=== PATIENT | female | born 1990 | race Caucasian/White ===

== ENCOUNTER 2021-03-10 14:03 | Emergency (ER) | payer OTHER, SELFPAY ==
--- NOTE | ~2021-03-10 | US_ITS ---
EXAMINATION: US FIRST TRIMESTER CLINICAL INFORMATION: Question ectopic LMP: Unknown Beta-hCG: Unknown COMPARISON: None available. TECHNIQUE: Transabdominal imaging was performed. FINDINGS: UTERUS AND INTRAUTERINE GESTATIONAL SAC: There is no intrauterine gestational sac found. OVARIES: Right: There is mildly complex septated cystic structure 1.5 x 0.9 x 1.5 cm. Left: There is a complex heterogeneous cystic structure in the left ovary 1.3 x 1.2 x 1.1 cm, in the right clinical setting, cannot rule out ectopic. FREE FLUID: There is a free fluid in the pelvis. OTHER FINDINGS: None US/US OB transvaginal IMPRESSION: 1. No intrauterine uterine gestational sac found. 2. Nonspecific Mild complex structure in the left ovary 1.3 cm, in the right clinical setting CANNOT RULE OUT ECTOPIC . Clinical correlation recommended. There is fluid in the pelvis.
[2021-03-10 14:14] VITALS: BP 107/63; PULSE 73; RESP 18; TEMP 36.7; O2SAT 100; BMI 30.2
--- NOTE | 2021-03-10 16:30 | ED_ITS ---
HPI - General Chief complaint: Vaginal Bleeding Stated complaint: , abd pain & vaginal pressure Time Seen by Provider: 03/10/21 16:27 History of Present Illness HPI Narrative: Patient is a 30-year-old female presented with having vaginal bleeding. Patient been bleeding for the last 3 weeks. Unsure when her last menstruation was. She has been 3 other times. With 3 live births. All vaginal. Patient went to urgent care yesterday for a possible yeast infec tion. Had a test done there. It was grossly positive. Never had an ectopic never had any gonorrhea chlamydia. Patient is on control. Patient claims compliance. No fever no chills no chest pain or shortness of breath no diaphoresis. No coughing no congestion or upper respiratory symptoms. Patient already received her coronavirus vaccine. Related Data Allergies Allergy/AdvReac Type Severity Reaction Status Date / Time No Known Allergies Allergy Verified 03/10/21 16:27 Review of Systems Review of Systems: No coughing or congestion or upper respiratory symptoms Positive lower abdominal pain Yes all other systems are reviewed and are negative [facility] Past Medical History Attestation statement: The following information was validated with the patient. Social History Social History Advance Directives: No Advance Directives Information Provided: No Patient : Yes Physical Exam Vital Signs: Vital Signs: Last Vital Signs Temp 97.8 F 03/10/21 20:27 Pulse 86 03/10/21 20:27 Resp 16 03/10/21 20:27 BP 121/65 03/10/21 20:27 Pulse Ox 97 03/10/21 20:27 Body Mass Index 30.2 Appearance: Alert. Oriented X3. No acute distress. Eyes: Pupils equal, round and reactive to light. ENT: Pharynx normal. Neck: Normal inspection. Neck supple. No lymph nodes noted. No crepitus CVS: Normal heart rate and rhythm. Pulses normal. Normal S1 and S2 Respiratory: No respiratory distress. Breath sounds normal. No Wheezing. No rales Abdomen: Soft and nontender. No rigidity. No distention. good BS x4 Skin: Skin warm and dry. Normal skin color. Normal skin turgor. Extremities: No lower extremity edema. Neurovascular intact to all extremities. No Lacerations. No Rash Neuro: Oriented X 3. No motor deficit. No sensory deficit. Moving all extermities. No slurred speech MDM - OB/Uterine Contractions MDM Narrative Medical decision making narrative: Patient's hemoglobin is 13. Quant was approximately 2800. At this level expected to see an IUP. Patient's ultrasound showed evidence for possible ectopic . Patient's blood type is A positive. Case was discussed with OBGYN came down evaluated patient. After long discussion with patient by OBGYN. Patient will be started on methotrexate. Close follow-up with OBGYN on Friday. Blood to be drawn as per OB on Friday morning. Patient's vital signs remained stable. Currently in stable condition. Will discharge after methotrexate Medical Records Attestation: I reviewed the patient's medical records. Lab Data Attestation: I reviewed the patient's lab results. Result diagrams: 03/10/21 16:45 03/10/21 16:45 Labs: Lab Results 03/10/21 03/10/21 03/10/21 Range/Units 16:45 16:45 16:45 WBC 12.8 H (4.8-10.8) X10*3/uL RBC 4.11 L (4.20-5.50) X10*6/uL Hgb 13.1 (12.0-16.0) g/dl Hct 37.9 (37.0-47.0) % MCV 92.2 (80.0-98.0) fL MCH 31.9 (27.0-33.0) pg MCHC 34.6 (31.0-35.0) g/dl RDW 12.3 (11.0-16.0) % Plt Count 298 (160-400) X10*3/uL MPV 9.6 (9.4-12.3) fL Immature Gran % (Auto) 0.4 (0.0-0.4) % Neut % (Auto) 79.3 H (45-73) % Lymph % (Auto) 15.9 L (20-40) % Gonzales % (Auto) 4.1 (2-11) % Eos % (Auto) 0.1 (0-4) % Baso % (Auto) 0.2 (0-2) % Lymph # (Auto) 2.0 (1.2-4.9) X10*3/uL Gonzales # (Auto) 0.5 (0.1-1.2) X10*3/uL Eos # (Auto) 0.0 (0.0-0.4) X10*3/uL Baso # (Auto) 0.0 (0.0-0.2) X10*3/uL Abs Immat Gran (auto) 0.05 H (0.00-0.03) X10*3/uL Absolute Neuts (auto) 10.2 H (2.0-8.3) x10*3/uL Absolute Nucleated RBC 0.000 (0.0-0.012) X10*3/uL Nucleated RBC % (auto) 0.0 (0.0-0.2) /100WBC Sodium 138 (135-145) mmol/L Potassium 4.3 (3.3-5.1) mmol/L Chloride 106 (96-108) mmol/L Carbon Dioxide 22 (22-29) mmol/L Anion Gap 14 (12-20) BUN 9 (9-16) mg/dL Creatinine 0.68 (0.5-1.4) mg/dL Estim Creat Clear Calc 116.6 Estimated GFR > 60 Random Glucose 89 (60-115) mg/dL Calcium 9.5 (8.4-10.2) mg/dL Total Bilirubin 0.5 (0.0-1.0) mg/dL AST 13 (5-31) U/L ALT 13 (0-31) U/L Alkaline Phosphatase 59 (39-117) U/L Total Protein 7.2 (6.5-8.0) g/dL Albumin 4.3 (3.5-5.0) g/dL Lipase 5 L (8-78) U/L Beta HCG, Quant 2842 mIU/mL Urine Color Urine Appearance Urine pH (5.0-8.0) Ur Specific [place] (1.005-1.025) Urine Protein (NEG-TRACE) MG/DL Urine Glucose (UA) (NEG) MG/DL Urine Ketones (NEG) MG/DL Urine Blood (NEG) Urine Nitrite (NEG) Ur Leukocyte Esterase (NEG) Urine RBC (0) /HPF Urine WBC (0-4) /HPF Ur Squamous Epith Cells /LPF Urine Bacteria /LPF Urine Mucus /LPF Blood Type A Positive Antibody Screen Cancelled 03/10/21 Range/Units 19:00 WBC (4.8-10.8) X10*3/uL RBC (4.20-5.50) X10*6/uL Hgb (12.0-16.0) g/dl Hct (37.0-47.0) % MCV (80.0-98.0) fL MCH (27.0-33.0) pg MCHC (31.0-35.0) g/dl RDW (11.0-16.0) % Plt Count (160-400) X10*3/uL MPV (9.4-12.3) fL Immature Gran % (Auto) (0.0-0.4) % Neut % (Auto) (45-73) % Lymph % (Auto) (20-40) % Gonzales % (Auto) (2-11) % Eos % (Auto) (0-4) % Baso % (Auto) (0-2) % Lymph # (Auto) (1.2-4.9) X10*3/uL Gonzales # (Auto) (0.1-1.2) X10*3/uL Eos # (Auto) (0.0-0.4) X10*3/uL Baso # (Auto) (0.0-0.2) X10*3/uL Abs Immat Gran (auto) (0.00-0.03) X10*3/uL Absolute Neuts (auto) (2.0-8.3) x10*3/uL Absolute Nucleated RBC (0.0-0.012) X10*3/uL Nucleated RBC % (auto) (0.0-0.2) /100WBC Sodium (135-145) mmol/L Potassium (3.3-5.1) mmol/L Chloride (96-108) mmol/L Carbon Dioxide (22-29) mmol/L Anion Gap (12-20) BUN (9-16) mg/dL Creatinine (0.5-1.4) mg/dL Estim Creat Clear Calc Estimated GFR Random Glucose (60-115) mg/dL Calcium (8.4-10.2) mg/dL Total Bilirubin (0.0-1.0) mg/dL AST (5-31) U/L ALT (0-31) U/L Alkaline Phosphatase (39-117) U/L Total Protein (6.5-8.0) g/dL Albumin (3.5-5.0) g/dL Lipase (8-78) U/L Beta HCG, Quant mIU/mL Urine Color YELLOW Urine Appearance HAZY Urine pH 6.0 (5.0-8.0) Ur Specific [place] >= 1.030 H (1.005-1.025) Urine Protein NEG (NEG-TRACE) MG/DL Urine Glucose (UA) NEG (NEG) MG/DL Urine Ketones >=80 (NEG) MG/DL Urine Blood 3+ H (NEG) Urine Nitrite NEG (NEG) Ur Leukocyte Esterase 1+ H (NEG) Urine RBC 10-14 H (0) /HPF Urine WBC 5-9 H (0-4) /HPF Ur Squamous Epith Cells 2+ /LPF Urine Bacteria 1+ /LPF Urine Mucus 2+ /LPF Blood Type Antibody Screen Critical Care Time Critical Care Time Critical Care Time: Yes Total Critical Care Time: 40 Attestation: I have personally provided 40 minutes of critical care time exclusive of time spent on separately billable procedures. Time includes review of lab data, radiology results, discussion with consultants, and monitoring for potential decompensation. Interventions were performed as documented above Discharge Plan Discharge Clinical Impression: Ectopic without intrauterine Patient Disposition: Home, Self-Care Instructions: Ectopic (DC) Referrals: Hao Rich MD [Physician] - 2 days (Please get blood drawn Friday morning. Please get appointment with Dr. Rich Friday afternoon. Worsened pain return to the emergency department)
[2021-03-10 16:31] VITALS: BP 122/66; PULSE 83; RESP 16; TEMP 36.8; O2SAT 100
[2021-03-10 16:50] LABS: MANUAL DIFF FLAG NO
[2021-03-10 16:54] LABS: Basophils Percent Auto 0.2 % (0-2); Eosinophils Percent Auto 0.1 % (0-4); Hematocrit 37.9 % (37.0-47.0); Hemoglobin 13.1 g/dl (12.0-16.0); Imm Gran Abs Auto 0.05 X10*3/uL (0.00-0.03); Imm Gran Pct Auto 0.4 % (0.0-0.4); Lymphocytes Percent Auto 15.9 % (20-40); Mean Corpuscular HGB Conc 34.6 g/dl (31.0-35.0); Mean Corpuscular Hemoglobin 31.9 pg (27.0-33.0); Mean Corpuscular Volume 92.2 fL (80.0-98.0); Mean Platelet Volume 9.6 fL (9.4-12.3); Monocytes Absolute Auto 0.5 X10*3/uL (0.1-1.2); Monocytes Percent Auto 4.1 % (2-11); Neutrophils Absolute Auto 10.2 x10*3/uL (2.0-8.3); Neutrophils Percent Auto 79.3 % (45-73); Platelet Count 298 X10*3/uL (160-400); Red Blood Count 4.11 X10*6/uL (4.20-5.50); Red Cell Distribution Width 12.3 % (11.0-16.0); White Blood Count 12.8 X10*3/uL (4.8-10.8)
[2021-03-10 17:09] LABS: Alanine Aminotransferase 13 U/L (0-31); Albumin Level 4.3 g/dL (3.5-5.0); Alkaline Phosphatase 59 U/L (39-117); Anion Gap 14 (12-20); Aspartate Amino Transferase 13 U/L (5-31); Bilirubin Total 0.5 mg/dL (0.0-1.0); Blood Urea Nitrogen 9 mg/dL (9-16); Calcium 9.5 mg/dL (8.4-10.2); Carbon Dioxide 22 mmol/L (22-29); Chloride 106 mmol/L (96-108); Creatinine Clr Calc Pharmacy 116.6; Estimated Glomerular Filt Rate > 60; Glucose Random 89 mg/dL (60-115); Lipase 5 U/L (8-78); Potassium 4.3 mmol/L (3.3-5.1); Sodium 138 mmol/L (135-145); Total Protein 7.2 g/dL (6.5-8.0)
[2021-03-10 17:15] LABS: HCG Quantitative 2842 mIU/mL
--- NOTE | 2021-03-10 17:30 | PC.NURSE ---
pt alert and oriented x4, vss. pt states she has been having vaginal bleeding x3 weeks. she is unsure when her last menstruation was. pt reports she went to urgent care yesterday for possible yeast infection, they did a test and it was positive. she reports she is on control and is consistent with taking her med. No fever, no chills, no chest pain, no sob. she denies any respiratory symptoms.
[2021-03-10 18:53] VITALS: BP 120/72; PULSE 75; RESP 16; TEMP 36.7; O2SAT 100
[2021-03-10 19:14] LABS: Appearance Urine HAZY; Color Urine YELLOW; Glucose Urine UA NEG (NEG); Leukocyte Esterase Urine 1+ (NEG); Nitrite Urine NEG (NEG); Specific Gravity - Urine >= 1.030 (1.005-1.025); UACC Culture Trigger YES; Urine Blood 3+ (NEG); Urine Ketones >=80 MG/DL (NEG); Urine Protein NEG (NEG-TRACE)
[2021-03-10 19:31] LABS: Bacteria Urine 1+ /LPF; Mucus Urine 2+ /LPF; Squamous Epithelial Cell Urine 2+ /LPF
--- NOTE | 2021-03-10 19:45 | PM.GYNCN ---
INSURANCE AUDITOR - CN: HPI Data of Consult Consult date: 03/10/21 Primary Care Provider: None Physician Consult Narrative Narrative: I was consulted on Rocio Drew who is a 30 year old female who presented emergency complaining of vaginal bleeding and pelvic cramping of 3 days duration. The patient has been on progestin only pill over the last year after delivery and was breast feeding but completely stopped recently. HCG level to 2842, ultrasound showed no IUP and a left complex adnexal cannot rule out ectopic Rh positive, never function tests and creatinine, CBC and platelets all are within normal cc:: CC: CHILI MAKER - Review of Systems Review of Systems ROS Unobtainable: All systems reviewed & are unremarkable except as noted in HPI and below Cardiovascular: Denies Palpatations, Loss of consciousness or Chest pain Respiratory: Denies Cough, Wheezing or Shortness of breath Musculoskeletal: Denies Low back pain Gastrointestinal: Denies Heartburn, Constipation, Diarrhea, Nausea or Vomiting Genitourinary: Denies Pain with urination, Burning with urination or Urinary frequency Neurological: Denies Migranes Psychological: Denies Depression OB [facility] Social History Social History Advance Directives: No Advance Directives Information Provided: No Patient : Yes Meds Allergies Allergy/AdvReac Type Severity Reaction Status Date / Time No Known Allergies Allergy Verified 03/10/21 16:27 INSURANCE AUDITOR Physical Exam Vitals Vital signs: Temp Pulse Resp BP Pulse Ox 98.1 F 75 16 120/72 100 03/10/21 18:53 03/10/21 18:53 03/10/21 18:53 03/10/21 18:53 03/10/21 18:53 Body Mass Index 30.2 Constitutional General Appearance: Healthy appearing, Well-nourished and Well-developed Psychiatric Mood and Affect: active and alert, normal mood and normal affect Skin Appearance: No rashes and No lesions Lungs Respiratory Effort: No intercostal retractions Auscultation: Clear to auscultation Cardiovascular Auscultation: RRR Abdomen Auscultation/Inspection/Palpation: Normal bowel sounds, Soft, Non-distended and No tenderness Female Genitalia (Pelvic) Bladder/Urethra: Normal meatus and No discharge Vagina: Nontender Cervix: Grossly normal and No cervical motion tenderness Uterus: Nontender Adnexa/Parametria: Adnexal Tenderness: None, Adnexal Mass: None and Parametrial Tenderness: None INSURANCE AUDITOR - Results Labs CBC & Chem 7: 03/10/21 16:45 03/10/21 16:45 Labs: Short CBC 03/10/21 Range/Units 16:45 WBC 12.8 H (4.8-10.8) X10*3/uL Hgb 13.1 (12.0-16.0) g/dl Hct 37.9 (37.0-47.0) % Plt Count 298 (160-400) X10*3/uL BMP 03/10/21 16:45 Sodium 138 Potassium 4.3 Chloride 106 Carbon Dioxide 22 BUN 9 Creatinine 0.68 Calcium 9.5 Liver Function 03/10/21 Range/Units 16:45 Total Bilirubin 0.5 (0.0-1.0) mg/dL AST 13 (5-31) U/L ALT 13 (0-31) U/L Alkaline Phosphatase 59 (39-117) U/L Albumin 4.3 (3.5-5.0) g/dL Urine 03/10/21 Range/Units 19:00 Urine Color YELLOW Urine Appearance HAZY Urine pH 6.0 (5.0-8.0) Ur Specific [place] >= 1.030 H (1.005-1.025) Urine Protein NEG (NEG-TRACE) MG/DL Urine Glucose (UA) NEG (NEG) MG/DL Antibody Screen Antibody Screen Cancelled 03/10/21 16:45 Imaging US - abdomen: Radiologist's impression: ITS Impressions Transvaginal US 03/10/21 17:30 IMPRESSION: 1. No intrauterine uterine gestational sac found. 2. Nonspecific Mild complex structure in the left ovary 1.3 cm, in the right clinical setting CANNOT RULE OUT ECTOPIC . Clinical correlation recommended. There is fluid in the pelvis. Assessment and Plan (1) : Status: Acute Discussed with the patient HCG, still below 3500 level discriminatory zone, and the finding on ultrasound, no IUP and left complex adnexal cyst cannot rule out ectopic , the differential diagnosis includes but not limited to: ectopic , early intrauterine or spontaneous from and intrauterine not detectable by ultrasound because of the low hCG level. The patient stated that her is its intrauterine is not desirable, will end up proceeding with . Discussed with the patient treatment options including? methotrexate treatment versus expected management. All the pros and cons risks and benefits of each approach were discussed with the patient.The expectant management approach advantage will prevent exposure of her intrauterine to teratogenicity and the risk of SAB secondary to methotrexate exposure, a more highly accurate diagnosis within 48 hours, when the hCG level will be probably be above 3500 level, with no IUP identified by ultrasound then the diagnosis of ectopic will be more accurate, the downside of expectant management includes the risk of delaying the diagnosis of ectopic and and increase in the risk of failure rate of methotrexate treatment or risk of ruptured tubal with all its consequences. Next I discussed with the patient all the pros and cons of the 2nd approach, methotrexate treatment; The advantage of this approach being reducing the risk of delayed diagnosis and treatment of a possible ectopic and reducing the risk of tubal rupture. The risks includes exposure of a possible undiagnosed early intrauterinepregnancy to SAB and/or teratogenicity / deformities secondary to methotrexate The patient stated that this is not desirable and she will end up proceeding with an in case of an intrauterine therefore would like to proceed with methotrexate and understand that this might be early intrauterine that was undiagnosed by ultrasounds because of its early and a low hCG level below discriminatory zone and is willing to increase the risk of SAB or exposure to this intrauterine to possibility deformities and teratogenicity from methotrexate. Discussed with the patient the Risks of methotrexate including but not limited to, failure rate of MTX ~15%, possible exposure of methotrexate teratogenicity to an early intrauterine not diagnosed by ultrasound with the risk of SAB and severe deformities, possibility of a early intrauterine (since HCG level is low). Patient decided to proceed with methotrexate treatment and signed the consent. Discussed with the patient the common side effects of the medication, including skin rash, sensitivity to the sun, indigestion, nausea, sore mouth were discussed with the patient. Less common side effects (occurring in less than 2% of patients) were also discussed a drop in blood cell counts or temporary elevation in liver enzymes. All questions were answered and recommended follow up reviewed. Plan methotrexate 50 mg/m2 BSA x 1.7m2 BSA = 90mg methotrexate IM x 1. Patient information sheet was given to the patient and instructed patient not to have intercourse or perform strenuous exercises or activities avoid sun exposure and to oncology. CBC platelets , Cr , AST/ALT are within normal , next step patient will be given methotrexate treatment , Rh is positive. The patient was given to the instructions to follow up with HCG day 4 with an office appointment and day 7 hCG . Signs and symptoms of ruptured ectopic discussed with the patient, she is to call or go to the ER if abdominal pain occurs, Otherwise will follow up with HCG day 4 and repeat HCG day 7 and a follow-up appointment. All questions were answered pt verbalized understanding
[2021-03-10 20:27] VITALS: BP 121/65; PULSE 86; RESP 16; TEMP 36.6; O2SAT 97
[2021-03-10] MEDS: metHOTREXate sodium 125 MG/5 ML SYRINGE 90.5 MG IM (21:23)
[2021-03-11 14:09] LABS: CT PCR NOT DETECTED (Not Detect.); NG PCR NOT DETECTED (Not Detect.)
== END 2021-03-10 21:30 | disposition home or self-care (01) ==
PROVIDERS: Physician Assistant; Emergency Provider Emergency Medicine Emergency Medical Services
DX: O00.90 Unspecified ectopic pregnancy without intrauterine pregnancy (principal)
CPT/HCPCS: 36415; 76817; 80053; 81001; 83690; 84702; 85025; 86900; 86901; 87086; 87491; 87591; 96372; 99283; 99291; J9250

== ENCOUNTER 2021-03-13 09:01 | Outpatient (REF) | payer OTHER, SELFPAY ==
[2021-03-13 10:45] LABS: HCG Quantitative 2564 mIU/mL
== END 2021-03-13 09:02 | disposition home or self-care (01) ==
LOC: HO.LAB 09:01
PROVIDERS: Visit Provider Obstetrics & Gynecology
DX: O00.90 Unspecified ectopic pregnancy without intrauterine pregnancy (principal)
CPT/HCPCS: 36415; 84702; 99212

== ENCOUNTER 2021-03-16 06:58 | Outpatient (REF) | payer OTHER, SELFPAY ==
[2021-03-16 07:45] LABS: HCG Quantitative 1581 mIU/mL
== END 2021-03-16 06:59 | disposition home or self-care (01) ==
LOC: HO.LAB 06:58
PROVIDERS: Visit Provider Obstetrics & Gynecology
DX: O00.90 Unspecified ectopic pregnancy without intrauterine pregnancy (principal); Z3A.01 Less than 8 weeks gestation of pregnancy
CPT/HCPCS: 36415; 84702

== ENCOUNTER → 2021-03-20 11:03 | Outpatient (BNVA) | payer OTHER, SELFPAY | PROVIDERS: Visit Provider Obstetrics & Gynecology | DX: O00.90 Unspecified ectopic pregnancy without intrauterine pregnancy (principal) | CPT/HCPCS: 99212 ==

== ENCOUNTER 2021-03-26 08:39 | Outpatient (REF) | payer OTHER, SELFPAY ==
[2021-03-26 09:29] LABS: HCG Quantitative 207 mIU/mL
== END 2021-03-26 08:40 | disposition home or self-care (01) ==
LOC: HO.LAB 08:39
PROVIDERS: Visit Provider Obstetrics & Gynecology
DX: O00.90 Unspecified ectopic pregnancy without intrauterine pregnancy (principal)
CPT/HCPCS: 36415; 84702; 99212

== ENCOUNTER 2021-04-05 08:49 | Outpatient (REF) | payer OTHER, SELFPAY ==
[2021-04-05 10:16] LABS: HCG Quantitative 75 mIU/mL
== END 2021-04-05 08:50 | disposition home or self-care (01) ==
LOC: HO.LAB 08:49
PROVIDERS: Visit Provider Obstetrics & Gynecology
DX: O00.90 Unspecified ectopic pregnancy without intrauterine pregnancy (principal); F17.200 Nicotine dependence, unspecified, uncomplicated; Z30.09 Encounter for other general counseling and advice on contraception
CPT/HCPCS: 36415; 84702; 99212

== ENCOUNTER 2021-05-07 09:13 | Outpatient (REF) | payer OTHER, SELFPAY ==
[2021-05-07 10:30] LABS: HCG Quantitative 11 mIU/mL
== END 2021-05-07 09:14 | disposition home or self-care (01) ==
LOC: HO.LAB 09:13
PROVIDERS: Visit Provider Obstetrics & Gynecology
DX: O00.90 Unspecified ectopic pregnancy without intrauterine pregnancy (principal); O99.280 Endocrine, nutritional and metabolic diseases complicating pregnancy, unspecified trimester; O99.331 Smoking (tobacco) complicating pregnancy, first trimester; F17.210 Nicotine dependence, cigarettes, uncomplicated; Z3A.00 Weeks of gestation of pregnancy not specified; E78.00 Pure hypercholesterolemia, unspecified; Z83.3 Family history of diabetes mellitus; Z82.49 Family history of ischemic heart disease and other diseases of the circulatory system
CPT/HCPCS: 36415; 84702

== ENCOUNTER 2021-05-29 08:36 | Outpatient (REF) | payer OTHER, SELFPAY ==
[2021-05-29 10:07] LABS: HCG Quantitative 5 mIU/mL
== END 2021-05-29 08:37 | disposition home or self-care (01) ==
LOC: HO.LAB 08:36
PROVIDERS: Visit Provider Obstetrics & Gynecology
DX: O00.90 Unspecified ectopic pregnancy without intrauterine pregnancy (principal)
CPT/HCPCS: 36415; 84702

== ENCOUNTER → 2021-05-30 15:01 | Outpatient (BNVA) | payer OTHER, SELFPAY | PROVIDERS: Visit Provider Obstetrics & Gynecology ==

== ENCOUNTER 2021-06-14 09:03 | Outpatient (REF) | payer OTHER, SELFPAY | END 2021-06-14 09:04 | disposition home or self-care (01) | LOC: HO.LAB 09:03 | PROVIDERS: Visit Provider Obstetrics & Gynecology | DX: Z30.9 Encounter for contraceptive management, unspecified (principal) | CPT/HCPCS: 88142 ==

== ENCOUNTER 2021-06-25 08:42 | Outpatient (REF) | payer OTHER, SELFPAY ==
[2021-06-25 09:52] LABS: HCG Quantitative < 2 mIU/mL
== END 2021-06-25 08:43 | disposition home or self-care (01) ==
LOC: HO.LAB 08:42
PROVIDERS: Visit Provider Obstetrics & Gynecology
DX: O00.90 Unspecified ectopic pregnancy without intrauterine pregnancy (principal)
CPT/HCPCS: 36415; 84702

== ENCOUNTER → 2021-06-26 14:41 | Outpatient (BNVA) | payer OTHER, SELFPAY | PROVIDERS: Visit Provider Obstetrics & Gynecology ==

== ENCOUNTER 2021-11-26 11:57 | Outpatient (REF) | payer OTHER, SELFPAY ==
[2021-11-26 13:27] LABS: Hematocrit 39.1 % (37.0-47.0); Hemoglobin 13.2 g/dl (12.0-16.0); Mean Corpuscular HGB Conc 33.8 g/dl (31.0-35.0); Mean Corpuscular Hemoglobin 30.9 pg (27.0-33.0); Mean Corpuscular Volume 91.6 fL (80.0-98.0); Mean Platelet Volume 9.9 fL (9.4-12.3); Platelet Count 305 X10*3/uL (160-400); Red Blood Count 4.27 X10*6/uL (4.20-5.50); Red Cell Distribution Width 11.9 % (11.0-16.0); White Blood Count 6.4 X10*3/uL (4.8-10.8)
[2021-11-26 13:43] LABS: Alanine Aminotransferase 15 U/L (0-31); Albumin Level 4.1 g/dL (3.5-5.0); Alkaline Phosphatase 48 U/L (39-117); Anion Gap 14 (12-20); Aspartate Amino Transferase 14 U/L (5-31); Bilirubin Total 0.2 mg/dL (0.0-1.0); Blood Urea Nitrogen 10 mg/dL (9-16); Calcium 9.2 mg/dL (8.4-10.2); Carbon Dioxide 24 mmol/L (22-29); Chloride 105 mmol/L (96-108); Cholesterol 260 mg/dL; Estimated Glomerular Filt Rate > 60; Glucose Fasting 83 mg/dL (60-99); HDL Cholesterol 64 mg/dL; LDL Cholesterol Calculated 161 mg/dl; Potassium 4.2 mmol/L (3.3-5.1); Sodium 139 mmol/L (135-145); Total Protein 7.5 g/dL (6.5-8.0); Triglycerides 175 mg/dL
[2021-11-26 14:04] LABS: TSH reflex Free T4 1.02 uIU/mL (0.32-4.0)
== END 2021-11-26 11:58 | disposition home or self-care (01) ==
LOC: HO.WFDLDS 11:57
PROVIDERS: Visit Provider Hospitalist
DX: Z00.00 Encounter for general adult medical examination without abnormal findings (principal)
CPT/HCPCS: 36415; 80053; 80061; 84443; 85027

== ENCOUNTER → 2022-07-26 10:49 | Outpatient (BNVA) | payer SELFPAY | PROVIDERS: PCP Hospitalist | DX: Z02.89 Encounter for other administrative examinations (principal) ==

== ENCOUNTER 2022-08-13 08:49 | Outpatient (REF) | payer OTHER, SELFPAY ==
[2022-08-14 04:14] LABS: HBsAGNum1 0.36 S/CO (0.00-0.99); Hepatitis B Surface Antigen Negative (Negative)
== END 2022-08-13 08:50 | disposition home or self-care (01) ==
LOC: HO.HMGCLDS 08:49
PROVIDERS: PCP Hospitalist; Visit Provider Hospitalist
DX: Z01.84 Encounter for antibody response examination (principal); Z20.2 Contact with and (suspected) exposure to infections with a predominantly sexual mode of transmission
CPT/HCPCS: 36415; 86707; 86787; 87340

== ENCOUNTER 2022-08-14 08:53 | Outpatient (REF) | payer OTHER, SELFPAY ==
[2022-08-14 15:28] LABS: CT PCR NOT DETECTED (Not Detect.); NG PCR NOT DETECTED (Not Detect.)
[2022-08-15 14:34] LABS: BV Int Neg Control Negative (Negative); BV Int Pos Control Positive (Positive)
== END 2022-08-14 08:54 | disposition home or self-care (01) ==
LOC: HO.LNP 08:53
PROVIDERS: PCP Hospitalist; Visit Provider Obstetrics & Gynecology
DX: Z30.9 Encounter for contraceptive management, unspecified (principal); N94.10 Unspecified dyspareunia
CPT/HCPCS: 0353U; 81025; 87480; 87510; 87660

== ENCOUNTER 2022-08-29 11:10 | Outpatient (REF) | payer OTHER, SELFPAY ==
[2022-08-29 13:29] LABS: ~Hepatitis C Antibody Nonreactive (Nonreactive)
[2022-08-30 08:41] LABS: Syphilis Screen Nonreactive (Nonreactive)
[2022-08-30 09:27] LABS: HBsAGNum1 0.24 S/CO (0.00-0.99); HIV AB/AG Nonreactive (Nonreactive); HIV Num 1 0.08 S/CO (0.00-0.99); Hepatitis B Surface Antigen Negative (Negative); ~HepC Num1 0.13 S/CO (0.00-0.79)
[2022-09-02 21:47] LABS: Hepatitis BE Antibody NON-REACTIVE (NON-REACTIVE)
== END 2022-08-29 11:11 | disposition home or self-care (01) ==
LOC: HO.LAB 11:10
PROVIDERS: PCP Hospitalist; Visit Provider Obstetrics & Gynecology
DX: Z13.9 Encounter for screening, unspecified (principal); Z11.4 Encounter for screening for human immunodeficiency virus [HIV]; B96.89 Other specified bacterial agents as the cause of diseases classified elsewhere; N76.0 Acute vaginitis
CPT/HCPCS: 36415; 86707; 86780; 86803; 87340; 87389

== ENCOUNTER 2022-09-11 10:37 | Outpatient (REF) | payer OTHER, SELFPAY ==
--- NOTE | ~2022-09-11 | US_ITS ---
EXAMINATION: US PELVIS CLINICAL INFORMATION: Unspecified dyspareunia. COMPARISON: None available. TECHNIQUE: Ultrasound of the pelvis is performed using both transabdominal and transvaginal transducers along with Doppler. Transvaginal imaging is performed due to inadequate visualization transabdominally. FINDINGS: UTERUS: The uterus is anteverted and measures 6.7 x 3.7 x 5.4 cm. The double wall endometrial thickness is 6 mm. The uterus is smooth in contour and has normal myometrial echogenicity. No visible fibroid. ADNEXA: Both ovaries are visualized. There is normal color flow to the adnexa. There is no ovarian torsion. There is no pelvic ascites or fluid collection. Right ovary measures 2.3 x 1.8 x 2.2 cm. For a volume of 4.8 mL. Left ovary measures 2.2 x 1.2 x 1.6 cm. For a volume of 2.2 mL. US/US pelvic and transvaginal IMPRESSION: Negative exam.
[2022-09-13 16:08] LABS: TS Negative Control Passed; TS Panel A 0; TS Panel B 0; TS Positive Control Passed; TSpotTB Negative (Negative)
== END 2022-09-11 10:38 | disposition home or self-care (01) ==
LOC: HO.LAB 10:37
PROVIDERS: PCP Hospitalist; Visit Provider Nurse Practitioner Family
DX: N94.10 Unspecified dyspareunia (principal); Z11.1 Encounter for screening for respiratory tuberculosis
CPT/HCPCS: 36415; 76830; 76856; 86481

== ENCOUNTER → 2022-09-25 09:04 | Outpatient (BNVA) | payer OTHER, SELFPAY | PROVIDERS: PCP Hospitalist; Visit Provider Obstetrics & Gynecology | DX: N94.10 Unspecified dyspareunia (principal) | CPT/HCPCS: 99212 ==

== ENCOUNTER 2022-12-11 08:16 | Outpatient (AMB) | payer OTHER, SELFPAY ==
--- NOTE | 2022-12-10 13:14 | ...WebTmpl.AM.PHNO ---
MONA-7 AMB Questionnaire MONA-7 Date MONA - 7 assessed: 12/10/22 Feeling nervous, anxious, or on edge: 0 = Not at all Not being able to stop or control worryin = Not at all Worrying too much about different things: 0 = Not at all Trouble relaxin = Not at all Being so restless that it is hard to sit still: 0 = Not at all Becoming easily annoyed or irritable: 0 = Not at all Feeling afraid as if something awful might happen: 0 = Not at all Total MONA-7 score (0-4 normal; 5-9 mild; 10-14 moderate; 15-21 severe): 0 Source: Developed by Drs. Kelvin Medeiros, Neema Dean, Phong Monge and colleagues, with an educational swetha from [employer]. PHQ-9 Over the last 2 weeks, how often have you been bothered by any of the following problems? 1. Little interest or pleasure in doing things: not at all 2. Feeling down, depressed, or hopeless: not at all 3. Trouble falling or staying asleep, or sleeping too much: not at all 4. Feeling tired or having little energy: not at all 5. Poor appetite or overeating: not at all 6. Feeling bad about yourself - or that you are a failure or have let yourself or your family down: not at all 7. Trouble concentrating on things, such as reading the newspaper or watching television: not at all 8. Moving or speaking so slowly that other people could have noticed. Or the opposite - being so fidgety or restless that you have been moving around a lot more than usual: not at all 9. Thoughts that you would be better off or of hurting yourself in some way: not at all Total score: 0 Depression Screening Interpretation: Negative Source: Developed by Drs. Kelvin Medeiros, Neema Dean, Phong Monge and colleagues, with an educational swetha from [employer]. AUDIT C Alcohol Use Questionnaire (AUDIT-C) 1. How often do you have a drink containing alcohol?: Monthly or less 2. How many drinks containing alcohol do you have on a typical day when you are drinking?: 3 or 4 3. How often do you have six or more drinks on one occasion?: Never Total Score: 2 Thrive Questionnaire Date Thrive assessed: 12/10/22 I am a: Patient What is your living situation today?: I have a steady place to live Within the past 12 months, did the food you bought not last and you didn't have the money to get more?: Never true Within the past 12 months, did you worry whether your food would run out before you got money to buy more?: Never true Do you have trouble paying for medicines?: No Do you have trouble getting transportation to medical appointments?: No Do you have trouble paying your heating and electricity bill?: No Do you have trouble taking care of your child, family member or friend?: No Do you have trouble with day-to-day activities such as bathing, preparing meals, shopping, managing finances, etc.?: No Are you currently unemployed and looking for a job?: No Are you interested in more education?: No Please select the resources that you would like help with: None Currently or been in a relationship where the following occur: no concerns reported
[2022-12-11 08:39] VITALS: BP 102/74; PULSE 64; RESP 12; TEMP 36.5; O2SAT 99; BMI 28.0
--- NOTE | 2022-12-11 08:39 | A.OFFPC_ITS ---
Vital Signs 12/11/22 08:39 Height 5 ft 2 in Weight 153 lb 6 oz BMI 28.0 BP 102/74 Blood Pressure Location Rt brachial Position Sitting Respiration 12 Pulse 64 Pulse Source Pulse Oximeter Temp 97.7 F Temp Source Temporal Artery Scan Pulse Oximetry (%) 99 Oxygen Delivery Method Room Air Intake Visit Reasons: Annual PE Teletype Mechanic Required: No Accompanied by: Self / Same As Patient Allergies No Known Allergies Allergy (Verified 12/11/22 08:55) Medication List - Last Reconciled 12/11/22 by Cherise Larry CNP atorvastatin 40 mg PO BEDTIME desogestrel-ethinyl estradiol 0.15-0.03 mg (Apri) 1 tab PO DAILY 28 days Tobacco use date assessed: 08/06/22 Dental Screening Dental Screen Date: 12/11/22 Did you have a dental visit in the last 12 months?: Yes Did you have a dental problem in the last 6 months where you did not have access to dental care?: No Was dental information given to patient?: Patient has dentist HPI HPI Comments History of Present Illness Details 32-year-old female presents for complete physical exam. She has past medical history significant for hyperlipidemia. She is on atorvastatin 40 mg daily; she notes she has not taken the medication in the past 2 months; she still has refills; no adverse reaction. Her last blood work was a year ago. No acute symptoms today. She is followed by [facility]. She notes that her last pap smear was on 07/2022: normal. She notes she is sexually active, in a monogamous relationship, and practices safe sex. [facility] Medical History High cholesterol Surgical History H/O wrist surgery Family History Father Diabetes HTN (hypertension) Mother Diabetes HTN (hypertension) Social History Household Members: Significant Other and Children Housing: House Alcohol intake: current Alcohol intake frequency: holidays/special occasions only Patient Tobacco Use Status: Current someday Tobacco user e-Cigarette/Vaping Use: Never Used Current occupational status: employed Current occupation: [employer] Sexual orientation: Straight/Heterosexual Gender identity: Female Cognitive needs: No Hearing needs: No Vision needs: No Female Reproductive History Menstrual Age of Menarche: 14 Questionnaire PHQ-9 Over the last 2 weeks, how often have you been bothered by any of the following problems? 1. Little interest or pleasure in doing things: not at all 2. Feeling down, depressed, or hopeless: not at all 3. Trouble falling or staying asleep, or sleeping too much: not at all 4. Feeling tired or having little energy: not at all 5. Poor appetite or overeating: not at all 6. Feeling bad about yourself - or that you are a failure or have let yourself or your family down: not at all 7. Trouble concentrating on things, such as reading the newspaper or watching television: not at all 8. Moving or speaking so slowly that other people could have noticed. Or the opposite - being so fidgety or restless that you have been moving around a lot more than usual: not at all 9. Thoughts that you would be better off or of hurting yourself in some way: not at all Total score: 0 Depression Screening Interpretation: Negative Source: Developed by Drs. Kevlin Medeiros, Neema Dean, Phong Monge and colleagues, with an educational swetha from [employer]. Thrive Questionnaire Date Thrive assessed: 12/10/22 I am a: Patient What is your living situation today?: I have a steady place to live Within the past 12 months, did the food you bought not last and you didn't have the money to get more?: Never true Within the past 12 months, did you worry whether your food would run out before you got money to buy more?: Never true Please select the resources that you would like help with: None AUDIT C Alcohol Use Questionnaire (AUDIT-C) 1. How often do you have a drink containing alcohol?: Monthly or less 2. How many drinks containing alcohol do you have on a typical day when you are drinking?: 3 or 4 3. How often do you have six or more drinks on one occasion?: Never Total Score: 2 MONA-7 AMB Questionnaire MONA-7 Date MONA - 7 assessed: 12/10/22 Feeling nervous, anxious, or on edge: 0 = Not at all Not being able to stop or control worryin = Not at all Worrying too much about different things: 0 = Not at all Trouble relaxin = Not at all Being so restless that it is hard to sit still: 0 = Not at all Becoming easily annoyed or irritable: 0 = Not at all Feeling afraid as if something awful might happen: 0 = Not at all Total MONA-7 score (0-4 normal; 5-9 mild; 10-14 moderate; 15-21 severe): 0 Source: Developed by Drs. Kelvin Medeiros, Neema Dean, Phong Monge and colleagues, with an educational swetha from [employer]. Review of Systems Const Details: Denies chills, Denies fatigue, Denies fever(s), Denies headache(s) and Denies weakness HEENT Denies change in vision, Denies dizziness, Denies headache(s), Denies hearing loss, Denies nasal congestion, Denies sinus pain, Denies sinus pressure and Denies sore throat Card Denies chest pain, Denies lightheadedness, Denies dyspnea and Denies other (palpitations) Resp Denies cough, Denies dyspnea and Denies wheezing GI Denies abdominal pain, Denies melena, Denies hematochezia, Denies change in bowel habits, Denies dyspepsia and Denies nausea Denies hematuria and Denies dysuria Musc Denies abnormal gait, Denies myalgias, Denies arthralgias, Denies numbness and Denies tingling Skin/Breast Denies rash, Denies unusual bruising and Denies wounds Neuro Denies abnormal gait, Denies dizziness, Denies headache(s), Denies memory loss, Denies numbness, Denies Sensory deficit (Neuro), Denies tingling and Denies weakness Psych Denies anxiety, Denies depression and Denies memory loss Endo Denies cold intolerance, Denies fatigue, Denies heat intolerance, Denies polydipsia and Denies polyuria Daniel/Lymph Denies easy bleeding and Denies easy bruising Aller/Immun Denies wheezing Physical exam (Primary Care) Vital Signs: Last Vital Signs Temp 97.7 F 12/11/22 08:39 Pulse 64 12/11/22 08:39 Resp 12 12/11/22 08:39 BP 102/74 12/11/22 08:39 Pulse Ox 99 12/11/22 08:39 Oxygen Delivery Method Room Air 12/11/22 08:39 BMI result Body Mass Index 28.0 Tobacco/Smoking Status: Tobacco use Status Tobacco use date assessed 08/06/22 12/11/22 08:45 Patient Tobacco Use Status Current someday Tobacco 12/11/22 08:45 e-Cigarette/Vaping Use Never Used 12/11/22 08:45 PHQ-9: PHQ-9 Score PHQ-9: Total score 0 12/11/22 08:45 Depression Screening Interpretation: Negative Thrive Assessment: Date of Thrive Assessment Date Thrive assessed 12/10/22 12/11/22 08:45 Const Other: General: no acute distress, well developed, alert and awake Nutritional Appearance: well nourished Orientation/consciousness: patient oriented x3 HENMT Head: Yes normocephalic and Yes atraumatic Ears: hearing grossly normal bilaterally and TM's normal bilaterally General nose exam: Normal external nose present and Normal nares present Mouth: Normal oral and palatal mucosa present and moist mucous membranes Teeth and gingiva: dentition normal Throat: Yes oropharynx normal Eyes Pupils: Equal, round and reactive pupils present and Pupil accommodation reflex normal EOM: EOMs intact bilaterally Neck Neck: Yes normal visual inspection, Yes no lymphadenopathy and Yes trachea midline Thyroid: Thyroid normal Carotids: no bruits Lymphatic: no lymphadenopathy noted Chest Chest palpation & inspection: normal inspection of the chest Resp Effort & Inspection: normal respiratory effort Auscultation: clear to auscultation bilaterally Cardio Rate: regular rate Rhythm: regular rhythm Heart sounds: S1 normal heart sound present, S2 normal heart sound present, no gallops, no murmurs and no rubs Bruits: no abdominal aortic bruits and no carotid bruits GI Palpation (GI): No Abdominal aortic bruit present, Soft to palpation, nontender, No hepatosplenomegaly present and No Rebound tenderness present Auscultation: normal bowel sounds General: Yes no CVA tenderness Back/Spine/Pelvis Back: no CVA tenderness Cervical Spine: cervical ROM normal and No Cervical spine tenderness Thoracic/Lumbar Spine: thoraco-lumbar ROM normal, No pain with thoraco-lumbar ROM, No thoracic spinal tenderness and No lumbar spinal tenderness Skin General: warm and dry. Normal skin color. Normal skin turgor Lesions: no lesions Rashes: no rashes Trauma: no lacerations or abrasions Wounds: no wounds Nails: normal Neuro General: patient oriented x3, gait normal and CN's II-XI intact bilaterally Cranial nerves: Yes Equal, round and reactive pupils present Cognition (Neuro): normal cognition Gait exam (Neuro): Normal gait present Motor exam (neuro): 5/5 motor strength present throughout Sensory Exam: No Sensory deficit (Neuro) Deep tendon reflexes (DTR's): Right patellar reflex intensity grade: 2+ and Left patellar reflex intensity grade: 2+ Extrem General: Yes normal to inspection, No edema and No calf tenderness Psych Appearance: grossly normal Affect: normal affect Attitude: cooperative Thought process: Normal thought process present Assessment and Plan Assessment & Plan (1) Normal physical exam: Code(s): Z00.00 - Encounter for general adult medical examination without abnormal findings Plan: No significant physical restrictions or limitations noted Encouraged to get fasting blood work done before next visit Follow-up in 2 weeks or 1 month for labs review and hyperlipidemia Return sooner with symptoms or concerns Verbalized understanding and agreed with treatment plan. (2) Hyperlipidemia: Code(s): E78.5 - Hyperlipidemia, unspecified Plan: Previous triglyceride, total cholesterol, and LDL were elevated a year ago; HDL was normal She has not been taking atorvastatin for the past 2 months Advised to take atorvastatin as prescribed Limit foods high in saturated fat and avoid foods high trans fat Will check lipid panel. Advised to fast for at least 10-12 hours and get blood work done before next visit Follow-up in 2 weeks or 1 month or return sooner with symptoms or concerns Verbalized understanding and agreed with treatment plan. Orders: Orders Comprehensive [place]. Panel Fast Today Z00.00 - Encounter for general adult medical examination without abnormal findings Lipid Panel Today Z00.00 - Encounter for general adult medical examination without abnormal findings TSH reflex Free T4 Today Z00.00 - Encounter for general adult medical examination without abnormal findings Complete Blood Count Auto Diff Today Z00.00 - Encounter for general adult medical examination without abnormal findings UA CC w/rflx Micro + Cult Today Z00.00 - Encounter for general adult medical examination without abnormal findings Coding Level of Care Code Est Pt Prev Care 18-39y(70370) Diagnoses Normal physical exam Z00.00 Hyperlipidemia E78.5
== END 2022-12-11 09:12 | disposition home or self-care (01) ==
PROVIDERS: PCP Hospitalist; Visit Provider Nurse Practitioner Family
DX: Z00.00 Encounter for general adult medical examination without abnormal findings (principal); E78.5 Hyperlipidemia, unspecified
CPT/HCPCS: 99395

== ENCOUNTER 2023-03-07 08:45 | Outpatient (REF) | payer OTHER, SELFPAY ==
[2023-03-07 08:57] LABS: MANUAL DIFF FLAG NO
[2023-03-07 10:23] LABS: Basophils Percent Auto 0.2 % (0-2); Eosinophils Absolute Auto 0.1 X10*3/uL (0.0-0.4); Eosinophils Percent Auto 1.2 % (0-4); Hematocrit 38.3 % (37.0-47.0); Hemoglobin 13.1 g/dl (12.0-16.0); Imm Gran Abs Auto 0.03 X10*3/uL (0.00-0.03); Imm Gran Pct Auto 0.5 % (0.0-0.4); Lymphocytes Percent Auto 35.2 % (20-40); Mean Corpuscular HGB Conc 34.2 g/dl (31.0-35.0); Mean Corpuscular Hemoglobin 30.9 pg (27.0-33.0); Mean Corpuscular Volume 90.3 fL (80.0-98.0); Mean Platelet Volume 10.6 fL (9.4-12.3); Monocytes Absolute Auto 0.4 X10*3/uL (0.1-1.2); Monocytes Percent Auto 7.8 % (2-11); Neutrophils Absolute Auto 3.1 x10*3/uL (2.0-8.3); Neutrophils Percent Auto 55.1 % (45-73); Platelet Count 265 X10*3/uL (160-400); Red Blood Count 4.24 X10*6/uL (4.20-5.50); Red Cell Distribution Width 12.1 % (11.0-16.0); White Blood Count 5.7 X10*3/uL (4.8-10.8)
[2023-03-07 10:34] LABS: Appearance Urine Clear; Color Urine Yellow; Glucose Urine UA Negative (Negative); Leukocyte Esterase Urine Negative (Negative); Nitrite Urine Negative (Negative); PH 5.5 (5.0-9.0); Urine Blood Negative (Negative); Urine Ketones Negative (Negative); Urine Protein Negative (Neg-Trace)
[2023-03-07 11:03] LABS: Alanine Aminotransferase 22 U/L (0-31); Albumin Level 4.1 g/dL (3.5-5.0); Alkaline Phosphatase 49 U/L (39-117); Anion Gap 10 (12-20); Aspartate Amino Transferase 18 U/L (5-31); Bilirubin Total 0.2 mg/dL (0.0-1.0); Blood Urea Nitrogen 11 mg/dL (9-16); Calcium 9.6 mg/dL (8.4-10.2); Carbon Dioxide 22 mmol/L (22-29); Chloride 110 mmol/L (96-108); Cholesterol 168 mg/dL (<200); Estimated Glomerular Filt Rate > 60; Glucose Fasting 90 mg/dL (60-99); HDL Cholesterol 56 mg/dL (>40); LDL Cholesterol Calculated 101 mg/dL (<100); Potassium 4.1 mmol/L (3.3-5.1); Sodium 138 mmol/L (135-145); Total Protein 7.4 g/dL (6.5-8.0); Triglycerides 56 mg/dL (<150)
[2023-03-07 11:28] LABS: TSH reflex Free T4 0.72 uIU/mL (0.32-4.0)
== END 2023-03-07 08:46 | disposition home or self-care (01) ==
LOC: HO.LAB 08:45
PROVIDERS: PCP Nurse Practitioner Family; Visit Provider Nurse Practitioner Family
DX: Z00.00 Encounter for general adult medical examination without abnormal findings (principal)
CPT/HCPCS: 36415; 80053; 80061; 81003; 84443; 85025

== ENCOUNTER 2023-03-12 10:01 | Outpatient (AMB) | payer OTHER, SELFPAY ==
[2023-03-12 10:08] VITALS: BP 106/64; PULSE 76; RESP 13; TEMP 36.5; O2SAT 99; BMI 28.6
--- NOTE | 2023-03-12 10:08 | A.OFFPC_ITS ---
Vital Signs 03/12/23 10:08 Height 5 ft 2 in Weight 156 lb 2 oz BMI 28.6 BP 106/64 Blood Pressure Location Lt brachial Position Sitting Respiration 13 Pulse 76 Pulse Source Pulse Oximeter Temp 97.7 F Temp Source Temporal Artery Scan Pulse Oximetry (%) 99 Oxygen Delivery Method Room Air Intake Visit Reasons: f/u HLD, labs review Finger Lift Operator Required: No Accompanied by: Self / Same As Patient Allergies No Known Allergies Allergy (Verified 03/12/23 10:17) Medication List - Last Reconciled 03/12/23 by Cherise Larry CNP atorvastatin 40 mg PO BEDTIME desogestrel-ethinyl estradiol 0.15-0.03 mg (Apri) 1 tab PO DAILY 28 days Tobacco use date assessed: 08/06/22 Dental Screening Dental Screen Date: 03/12/23 Did you have a dental visit in the last 12 months?: Yes Did you have a dental problem in the last 6 months where you did not have access to dental care?: No Was dental information given to patient?: Patient has dentist HPI HPI Comments History of Present Illness Details 32-year-old female presents for hyperlip idemia and review of recent blood work follow-up Her last extended physical exam was in November. Routine labs were ordered She admits to taking her medications as prescribed without adverse reactions She admits to making healthy dietary choices and exercising She offers no complaints and denies acute symptoms at this time [facility] Medical History High cholesterol Surgical History H/O wrist surgery Family History Father Diabetes HTN (hypertension) Mother Diabetes HTN (hypertension) Household Members: Significant Other and Children Housing: House Alcohol intake: current Alcohol intake frequency: holidays/special occasions only Patient Tobacco Use Status: Current someday Tobacco user e-Cigarette/Vaping Use: Never Used Current occupational status: employed Current occupation: [employer] Sexual orientation: Straight/Heterosexual Gender identity: Female Cognitive needs: No Hearing needs: No Vision needs: No Female Reproductive History Menstrual Age of Menarche: 14 Questionnaire Thrive Questionnaire Date Thrive assessed: 12/10/22 MONA-7 AMB Questionnaire MONA-7 Date MONA - 7 assessed: 12/10/22 Source: Developed by Drs. Kelvin Medeiros, Neema Dean, Phong Monge and colleagues, with an educational swetha from [employer]. Review of Systems Const Details: Const Denies chills, Denies fatigue, Denies fever(s), Denies headache(s) and Denies weakness ENT Denies dizziness and Denies headache(s) Card Denies chest pain, Denies lightheadedness, Denies dyspnea and Denies other (Palpitations) Resp Denies cough, Denies dyspnea, Denies wheezing and Denies other ( shortness of breath) GI Denies abdominal pain, Denies melena, Denies hematochezia, Denies change in bowel habits, Denies dyspepsia and Denies nausea Denies hematuria and Denies dysuria Musc Denies abnormal gait, Denies myalgias, Denies arthralgias, Denies numbness and Denies tingling Skin/Breast Denies rash, Denies unusual bruising and Denies wounds Neuro Denies abnormal gait, Denies dizziness, Denies headache(s), Denies memory loss, Denies numbness, Denies Sensory deficit (Neuro), Denies tingling and Denies weakness Psych Denies anxiety, Denies depression, Denies memory loss Endo Denies cold intolerance, Denies fatigue, Denies heat intolerance, Denies polydipsia and Denies polyuria Aller/Immun Denies wheezing Physical exam (Primary Care) Tobacco/Smoking Status: Tobacco use Status Tobacco use date assessed 08/06/22 12/11/22 08:45 Patient Tobacco Use Status Current someday Tobacco 12/11/22 08:45 e-Cigarette/Vaping Use Never Used 12/11/22 08:45 Thrive Assessment: Date of Thrive Assessment Date Thrive assessed 12/10/22 12/11/22 08:45 Const Other: General: no acute distress and well developed Nutritional Appearance: well nourished Orientation/consciousness: patient oriented x3 HENMT Head: Yes normocephalic and Yes atraumatic Eyes General: appearance normal, both eyes and all related structures Pupils: Equal, round and reactive pupils present EOM: EOMs intact bilaterally Resp Effort & Inspection: normal respiratory effort Auscultation: clear to auscultation bilaterally Cardio Rate: regular rate Rhythm: regular rhythm Heart sounds: S1 normal heart sound present, S2 normal heart sound present, no gallops, no murmurs and no rubs GI Palpation (GI): No Abdominal aortic bruit present, Soft to palpation, nontender, No hepatosplenomegaly present and No Rebound tenderness present Auscultation: normal bowel sounds General: Yes no CVA tenderness Back/Spine/Pelvis Back: no CVA tenderness Cervical Spine: cervical ROM normal and No Cervical spine tenderness Thoracic/Lumbar Spine: thoraco-lumbar ROM normal, No pain with thoraco-lumbar ROM, No thoracic spinal tenderness and No lumbar spinal tenderness Extrem General: Yes normal to inspection, No edema and No calf tenderness Skin General: warm and dry. Normal skin color. Normal skin turgor Neuro General: patient oriented x3, gait normal and no focal neuro deficit Cranial nerves: Yes Equal, round and reactive pupils present Cognition (Neuro): normal cognition Gait exam (Neuro): Normal gait present Sensory Exam: No Sensory deficit (Neuro) Psych Appearance: grossly normal Affect: normal affect Attitude: cooperative Thought process: Normal thought process present Assessment and Plan Assessment & Plan (1) Hyperlipidemia: Code(s): E78.5 - Hyperlipidemia, unspecified Plan: Recent lab results reviewed with the patient; findings are unrevealing Recent Triglyceride, total cholesterol, and HDL levels are within normal range, 56, 168, and 56 respectively Recent LDL is 101, slightly above goal of less than 100 Continue to take atorvastatin as prescribed Advised to limit foods high in saturated fat and avoid foods high in trans fat Routine exercise encouraged Will recheck lipid levels in 3 months. Advised to fast for 10-12 hours, may drink water only, and get blood work done before her next visit Follow-up in 3 months or return sooner with symptoms or concerns Verbalized understanding and agreed with treatment plan Orders: Orders Lipid Panel 3 Months E78.5 - Hyperlipidemia, unspecified Coding Level of Care Code Est Pt Level 3 (27144) Diagnoses Hyperlipidemia E78.5
== END 2023-03-12 10:27 | disposition home or self-care (01) ==
PROVIDERS: PCP Nurse Practitioner Family; Visit Provider Nurse Practitioner Family
DX: E78.5 Hyperlipidemia, unspecified (principal)
CPT/HCPCS: 99213

== ENCOUNTER 2023-05-27 08:15 | Outpatient (REF) | payer OTHER, SELFPAY ==
[2023-05-27 09:26] LABS: Cholesterol 151 mg/dL (<200); HDL Cholesterol 62 mg/dL (>40); LDL Cholesterol Calculated 76 mg/dL (<100); Triglycerides 69 mg/dL (<150)
== END 2023-05-27 08:16 | disposition home or self-care (01) ==
LOC: HO.LAB 08:15
PROVIDERS: PCP Nurse Practitioner Family; Visit Provider Nurse Practitioner Family
DX: E78.5 Hyperlipidemia, unspecified (principal)
CPT/HCPCS: 36415; 80061

== ENCOUNTER 2023-06-02 09:56 | Outpatient (AMB) | payer OTHER, SELFPAY ==
--- NOTE | 2023-06-02 09:58 | A.OFFPC_ITS ---
Vital Signs 06/02/23 10:00 Height 5 ft 2 in Weight 153 lb BMI 28.0 BP 110/74 Blood Pressure Location Rt brachial Position Sitting Respiration 13 Pulse 64 Pulse Source Pulse Oximeter Temp 97.5 F Temp Source Temporal Artery Scan Pulse Oximetry (%) 99 Oxygen Delivery Method Room Air Intake Visit Reasons: f/u HLD Caddie Supervisor Required: No Accompanied by: Self / Same As Patient Allergies No Known Allergies Allergy (Verified 06/02/23 10:14) Medication List - Last Reconciled 06/02/23 by Cherise Larry CNP atorvastatin 40 mg PO BEDTIME Tobacco use date assessed: 06/02/23 Dental Screening Dental Screen Date: 06/02/23 Did you have a dental visit in the last 12 months?: Yes Did you have a dental problem in the last 6 months where you did not have access to dental care?: No Was dental information given to patient?: Patient has dentist HPI HPI Comments History of Present Illness Details 32-year-old female presents for hyperlip idemia follow-up She admits to taking her medications as prescribed without adverse reactions She admits to making healthy dietary choices and exercising once weekly She offers no complaints and denies acute symptoms at this time [facility] Medical History High cholesterol Surgical History H/O wrist surgery Family History Father Diabetes HTN (hypertension) Mother Diabetes HTN (hypertension) Social History Household Members: Significant Other and Children Housing: House Alcohol intake: current Alcohol intake frequency: holidays/special occasions only Patient Tobacco Use Status: Current someday Tobacco user e-Cigarette/Vaping Use: Never Used service: No Current occupational status: employed Current occupation: [employer] Sexual orientation: Straight/Heterosexual Gender identity: Female Cognitive needs: No Hearing needs: No Vision needs: No Female Reproductive History Menstrual Age of Menarche: 14 Questionnaire Thrive Questionnaire Date Thrive assessed: 12/10/22 MONA-7 AMB Questionnaire MONA-7 Date MONA - 7 assessed: 12/10/22 Source: Developed by Neema DangW. Jermaine, Phong Monge and colleagues, with an educational swetha from [employer]. Review of Systems Const Details: Const Denies chills, Denies fatigue, Denies fever(s), Denies headache(s) and Denies weakness ENT Denies dizziness and Denies headache(s) Card Denies chest pain, Denies lightheadedness, Denies dyspnea and Denies other (Palpitations) Resp Denies cough, Denies dyspnea, Denies wheezing and Denies other ( shortness of breath) GI Denies abdominal pain, Denies melena, Denies hematochezia, Denies change in bowel habits, Denies dyspepsia and Denies nausea Denies hematuria and Denies dysuria Musc Denies abnormal gait, Denies myalgias, Denies arthralgias, Denies numbness and Denies tingling Skin/Breast Denies rash, Denies unusual bruising and Denies wounds Neuro Denies abnormal gait, Denies dizziness, Denies headache(s), Denies memory loss, Denies numbness, Denies Sensory deficit (Neuro), Denies tingling and Denies weakness Psych Denies anxiety, Denies depression, Denies memory loss Endo Denies cold intolerance, Denies fatigue, Denies heat intolerance, Denies polydipsia and Denies polyuria Aller/Immun Denies wheezing Physical exam (Primary Care) Vital Signs: Last Vital Signs Temp 97.5 F 06/02/23 10:00 Pulse 64 06/02/23 10:00 Resp 13 06/02/23 10:00 BP 110/74 06/02/23 10:00 Pulse Ox 99 06/02/23 10:00 Oxygen Delivery Method Room Air 06/02/23 10:00 BMI result Body Mass Index 28.0 Tobacco/Smoking Status: Tobacco use Status Tobacco use date assessed 06/02/23 06/02/23 10:07 Patient Tobacco Use Status Current someday Tobacco 06/02/23 10:00 e-Cigarette/Vaping Use Never Used 06/02/23 10:00 Thrive Assessment: Date of Thrive Assessment Date Thrive assessed 12/10/22 06/02/23 10:00 Const Other: General: no acute distress and well developed Nutritional Appearance: well nourished Orientation/consciousness: patient oriented x3 HENMT Head: Yes normocephalic and Yes atraumatic Eyes General: appearance normal, both eyes and all related structures Pupils: Equal, round and reactive pupils present EOM: EOMs intact bilaterally Resp Effort & Inspection: normal respiratory effort Auscultation: clear to auscultation bilaterally Cardio Rate: regular rate Rhythm: regular rhythm Heart sounds: S1 normal heart sound present, S2 normal heart sound present, no gallops, no murmurs and no rubs GI Palpation (GI): No Abdominal aortic bruit present, Soft to palpation, nontender, No hepatosplenomegaly present and No Rebound tenderness present Auscultation: normal bowel sounds General: Yes no CVA tenderness Back/Spine/Pelvis Back: no CVA tenderness Cervical Spine: cervical ROM normal and No Cervical spine tenderness Thoracic/Lumbar Spine: thoraco-lumbar ROM normal, No pain with thoraco-lumbar ROM, No thoracic spinal tenderness and No lumbar spinal tenderness Extrem General: Yes normal to inspection, No edema and No calf tenderness Skin General: warm and dry. Normal skin color. Normal skin turgor Neuro General: patient oriented x3, gait normal and no focal neuro deficit Cranial nerves: Yes Equal, round and reactive pupils present Cognition (Neuro): normal cognition Gait exam (Neuro): Normal gait present Sensory Exam: No Sensory deficit (Neuro) Psych Appearance: grossly normal Affect: normal affect Attitude: cooperative Thought process: Normal thought process present Assessment and Plan Assessment & Plan (1) Hyperlipidemia: Code(s): E78.5 - Hyperlipidemia, unspecified Plan: Recent triglyceride, total cholesterol, LDL, and HDL levels were normal, 69, 151, 76, and 62 respectively Continue current treatment regimen Healthy diet and routine exercise encouraged Will reduce atorvastatin to 20 mg daily at bedtime. Take as prescribed Will recheck lipid panel in 3 months. Advised to fast for 10-12 hours, may drink water only, and get blood work done before next visit Follow-up in 3 months or return sooner with symptoms or concerns Verbalized understanding and agreed with the treatment plan Orders: Orders Lipid Panel 3 Months E78.5 - Hyperlipidemia, unspecified Medications: New atorvastatin 20 mg PO BEDTIME 90 days 90 tabs 1RF Discontinued atorvastatin Discontinued Reason: Doctor's Order 40 mg PO BEDTIME 90 tabs 1RF Coding Level of Care Code Est Pt Level 3 (44298) Diagnoses Hyperlipidemia E78.5
[2023-06-02 10:00] VITALS: BP 110/74; PULSE 64; RESP 13; TEMP 36.4; O2SAT 99; BMI 28.0
== END 2023-06-02 10:20 | disposition home or self-care (01) ==
PROVIDERS: PCP Nurse Practitioner Family; Visit Provider Nurse Practitioner Family
DX: E78.5 Hyperlipidemia, unspecified (principal)
CPT/HCPCS: 99213

== ENCOUNTER 2023-09-29 08:16 | Outpatient (AMB) | payer OTHER, SELFPAY ==
[2023-09-29 08:25] VITALS: BP 110/76; BMI 28.6
--- NOTE | 2023-09-29 08:25 | A.OFFVIS_ITS ---
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 No complaints. Last Pap was negative in 06/12 [facility] Medical History High cholesterol Surgical History H/O wrist surgery Family History Father Diabetes HTN (hypertension) Mother Diabetes HTN (hypertension) Social History Household Members: Significant Other and Children Housing: House Alcohol intake: current Alcohol intake frequency: holidays/special occasions only Patient Tobacco Use Status: Current someday Tobacco user e-Cigarette/Vaping Use: Never Used service: No Current occupational status: employed Current occupation: [employer] Sexual orientation: Straight/Heterosexual Gender identity: Female Cognitive needs: No Hearing needs: No Vision needs: No Female Reproductive History Menstrual Age of Menarche: 14 Date of last menstrual period: 08/31/23 Total pregnancies: 4 Full term: 3 Number of Living Children: 3 Ectopics: 1 Date of last pap smear: 06/18/21 Review of Systems Const All systems reviewed & are unremarkable except as noted in HPI and below Card Reports as per HPI Resp Reports as per HPI GI Reports as per HPI and Reports no additional complaints Reports as per HPI Physical Exam Const General: cooperative, healthy appearing and comfortable Chest Chest palpation & inspection: normal inspection of the chest and normal palpation of entire chest wall Breast/axilla inspection: normal inspection of the breasts and normal inspection of the axillae Breast/axilla palpation: normal palpation of the breasts, normal palpation of the axillae and no axillary lymphadenopathy Resp Effort & Inspection: normal respiratory effort Auscultation: clear to auscultation bilaterally Percussion: percussion normal Cardio Palpation: normal PMI Rate: regular rate Rhythm: regular rhythm Heart sounds: no murmurs and no rubs Peripheral pulses: Peripheral pulses 2+ throughout GI Inspection: Yes normal to inspection Palpation (GI): Soft to palpation, nontender, no guarding, not rigid and No hepatosplenomegaly present Percussion: Yes normal to percussion Auscultation: normal bowel sounds Rectal Exam - Female: deferred General: Yes bladder normal to palpation External Female Exam: No lesion Speculum Exam - Vagina: normal appearance of the vagina, normal palpation, normal vaginal discharge and not erythematous Speculum Exam - Cervix: normal appearance of the cervix and normal palpation Bimanual exam- vagina & uterus: normal bimanual exam, normal palpation, uterine size normal, bladder normal to palpation, consistency normal and normal palpation Bimanual Exam- Adnexa, other: normal adnexae, no masses and no tenderness Assessment & Plan Assessment & Plan (1) Well woman exam: Code(s): Z01.419 - Encounter for gynecological examination (general) (routine) without abnormal findings Category: Medical Plan: Cotesting not indicated this year. Counseled the patient about the recommended dietary allowance of 1000 mg of C alcium & 600 IU of vitamin D. The patient was instructed to perform monthly self-breast exams and to schedule an annual exam in a year; All questions answered and the patient verbalized understanding. Instructed the patient to schedule annual exam in a year Coding Level of Care Code Est Pt Prev Care 18-39y(21633) Diagnoses Well woman exam Z01.419
== END 2023-09-29 08:49 | disposition home or self-care (01) ==
LOC: HO.HWS 08:16
PROVIDERS: PCP Nurse Practitioner Family; Visit Provider Obstetrics & Gynecology
DX: Z01.419 Encounter for gynecological examination (general) (routine) without abnormal findings (principal)
CPT/HCPCS: 99395

== ENCOUNTER → 2023-09-29 08:16 | Outpatient (BNVA) | payer OTHER, SELFPAY | PROVIDERS: PCP Nurse Practitioner Family; Visit Provider Obstetrics & Gynecology | DX: Z01.419 Encounter for gynecological examination (general) (routine) without abnormal findings (principal) | CPT/HCPCS: 99395 ==

== ENCOUNTER 2024-03-16 09:17 | Outpatient (AMB) | payer OTHER, SELFPAY ==
--- NOTE | 2024-03-16 09:19 | A.OFFPC_ITS ---
Vital Signs 03/16/24 09:23 Height 5 ft 2 in Weight 149 lb 2 oz BMI 27.3 BP 118/59 L Blood Pressure Location Rt brachial Position Sitting Respiration 16 Pulse 72 Pulse Source Pulse Oximeter Temp 98.8 F Temp Source Temporal Artery Scan Pulse Oximetry (%) 100 Oxygen Delivery Method Room Air Intake Visit Reasons: Stomach pain Intake Note: patient here c/o stomach pain, nausea for about a week. 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 Is last menstrual period known: Yes Last menstrual period: 03/16/24 Post menopausal: No Patient : No Allergies No Known Allergies Allergy (Verified 03/16/24 09:47) Medication List - Last Reconciled 03/16/24 by Cherise Larry CNP atorvastatin 20 mg PO BEDTIME 90 days Tobacco use date assessed: 03/16/24 Dental Screening Dental Screen Date: 03/16/24 Did you have a dental visit in the last 12 months?: Yes Did you have a dental problem in the last 6 months where you did not have access to dental care?: No Was dental information given to patient?: Patient has dentist HPI HPI Comments History of Present Illness Details The patient is a 33-year-old female presenting with abdominal pain. She reports that the pain has been persistent for a week, initially appearing about a week before her current menstrual cycle began. It is localized in the lower abdomen, radiating to the back, and described as sometimes sharp and other times crampy. Sharp episodes are brief, while cramp-like discomfort lingers. The patient associates the pain with similar sensations experienced during a past ectopic , for which ovarian cysts were identified. The pain intensity reaches a score of 8 out of 10 on occasion, notably affecting sleep due to increased severity at night. She took Tylenol (500 mg) for pain management but only took her it once this morning. The patient deduced a potential dietary influence, having stopped consuming kombucha and coffee, yet the pain persisted and intensified. Alongside, she reports occasional nausea without constipation, as bowel movements are regular and soft. She denies typical dysmenorrhea, generally experiencing menstrual pain only on the first day and not continuously before or during her periods. [facility] Medical History High cholesterol Surgical History H/O wrist surgery Family History Father Diabetes HTN (hypertension) Mother Diabetes HTN (hypertension) Social History Household Members: Significant Other and Children Housing: House Alcohol intake: current Alcohol intake frequency: holidays/special occasions only Patient Tobacco Use Status: Current someday Tobacco user e-Cigarette/Vaping Use: Never Used service: No Current occupational status: employed Current occupation: [employer] Sexual orientation: Straight/Heterosexual Gender identity: Female Cognitive needs: No Hearing needs: No Vision needs: No Female Reproductive History Menstrual Age of Menarche: 14 Date of last menstrual period: 03/16/24 Questionnaire Thrive Questionnaire Date Thrive assessed: 12/10/22 I am a: Patient What is your living situation today?: I have a steady place to live Within the past 12 months, did the food you bought not last and you didn't have the money to get more?: Never true Within the past 12 months, did you worry whether your food would run out before you got money to buy more?: Never true Do you have trouble paying for medicines?: No Do you have trouble getting transportation to medical appointments?: No Do you have trouble paying your heating and electricity bill?: No Do you have trouble taking care of your child, family member or friend?: No Do you have trouble with day-to-day activities such as bathing, preparing meals, shopping, managing finances, etc.?: No Are you currently unemployed and looking for a job?: No Are you interested in more education?: No Please select the resources that you would like help with: None Currently or been in a relationship where the following occur: No concerns reported THRIVE Score: 0 AUDIT C Alcohol Use Questionnaire (AUDIT-C) 1. How often do you have a drink containing alcohol?: Never Total Score: 0 MONA-7 AMB Questionnaire MONA-7 Date MONA - 7 assessed: 12/10/22 Feeling nervous, anxious, or on edge: 1 = Several days Not being able to stop or control worryin = Not at all Worrying too much about different things: 0 = Not at all Trouble relaxin = Several days Being so restless that it is hard to sit still: 0 = Not at all Becoming easily annoyed or irritable: 0 = Not at all Feeling afraid as if something awful might happen: 0 = Not at all Total MONA-7 score (0-4 normal; 5-9 mild; 10-14 moderate; 15-21 severe): 2 Source: Developed by Drs. Kelvin Medeiros, Neema Dean, Phong Monge and colleagues, with an educational swetha from [employer]. Review of Systems Const Details: Const Denies chills, Denies fatigue, Denies fever(s), Denies headache(s) and Denies weakness ENT Denies dizziness and Denies headache(s) Card Denies chest pain, Denies lightheadedness, Denies dyspnea and Denies other (Palpitations) Resp Denies cough, Denies dyspnea, Denies wheezing and Denies other ( shortness of breath) GI Reports as per HPI Denies urinary frequency, burning, pain, or discharge. Musc Denies abnormal gait, Denies myalgias, Denies arthralgias, Denies numbness and Denies tingling Skin/Breast Denies rash, Denies unusual bruising and Denies wounds Neuro Denies abnormal gait, Denies dizziness, Denies headache(s), Denies memory loss, Denies numbness, Denies Sensory deficit (Neuro), Denies tingling and Denies weakness Psych Denies anxiety, Denies depression, Denies memory loss Endo Denies cold intolerance, Denies fatigue, Denies heat intolerance, Denies polydipsia and Denies polyuria Aller/Immun Denies wheezing Physical exam (Primary Care) Vital Signs: Last Vital Signs Temp 98.8 F 03/16/24 09:23 Pulse 72 03/16/24 09:23 Resp 16 03/16/24 09:23 BP 118/59 L 03/16/24 09:23 Pulse Ox 100 03/16/24 09:23 Oxygen Delivery Method Room Air 03/16/24 09:23 BMI result Body Mass Index 27.3 Tobacco/Smoking Status: Tobacco use Status Tobacco use date assessed 03/16/24 03/16/24 09:26 Patient Tobacco Use Status Current someday Tobacco 03/16/24 09:26 e-Cigarette/Vaping Use Never Used 03/16/24 09:26 Thrive Assessment: Date of Thrive Assessment Date Thrive assessed 12/10/22 03/16/24 09:26 Currently or been in a relationship where the following occur: No concerns reported Const Other: General: no acute distress and well developed Nutritional Appearance: well nourished Orientation/consciousness: patient oriented x3 [facility] Head: Yes normocephalic and Yes atraumatic Eyes General: appearance normal, both eyes and all related structures Pupils: Equal, round and reactive pupils present EOM: EOMs intact bilaterally Resp Effort & Inspection: normal respiratory effort Auscultation: clear to auscultation bilaterally Cardio Rate: regular rate Rhythm: regular rhythm Heart sounds: S1 normal heart sound present, S2 normal heart sound present, no gallops, no murmurs and no rubs GI Palpation (GI): Mild discomfort noted upon palpation of the lower abdomen.No Abdominal aortic bruit present, Soft to palpation, No hepatosplenomegaly present and No Rebound tenderness present Auscultation: normal bowel sounds General: Yes no CVA tenderness Back/Spine/Pelvis Back: no CVA tenderness Cervical Spine: cervical ROM normal and No Cervical spine tenderness Thoracic/Lumbar Spine: thoraco-lumbar ROM normal, No pain with thoraco-lumbar ROM, No thoracic spinal tenderness and No lumbar spinal tenderness Extrem General: Yes normal to inspection, No edema and No calf tenderness Skin General: warm and dry. Normal skin color. Normal skin turgor Neuro General: patient oriented x3, gait normal and no focal neuro deficit Cranial nerves: Yes Equal, round and reactive pupils present Cognition (Neuro): normal cognition Gait exam (Neuro): Normal gait present Sensory Exam: No Sensory deficit (Neuro) Psych Appearance: grossly normal Affect: normal affect Attitude: cooperative Thought process: Normal thought process present Coding Level of Care Code Est Pt Level 4 (94754) Diagnoses Abdominal pain R10.9 Laboratory tests ordered as part of a complete physical exam (CPE) Z00.00 Assessment & Plan Assessment & Plan (1) Abdominal pain: Code(s): R10.9 - Unspecified abdominal pain Category: Medical Plan: Prescribe acetaminophen Tylenol) 650 mg every 8 hours as needed for pain relief. 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 Monitor symptoms closely for any changes in intensity, location, or characteristics over the next few days. (2) Laboratory tests ordered as part of a complete physical exam (CPE): Code(s): Z00.00 - Encounter for general adult medical examination without abnormal findings Category: Medical Plan: Fasting labs ordered as part of a complete physical exam. Advised to fast for at least 10 hours before getting labs drawn. May drink water Verbalized understanding and agreed with treatment plan. Plan I discussed with the patient that current symptoms could be due to a gynecological issue particularly given her history of ectopic and ovarian cysts. I recommended a consistent acetaminophen pain regimen and emphasized the importance of monitoring symptoms. If pain worsens or does not improve, she should contact her iron and steel work supervisor for further evaluation. The risks and benefits of using acetaminophen for pain management were discussed, and the patient agreed to follow this plan. Additionally, I advised scheduling a physical exam to reassess cholesterol management and suggested performing a fasting blood test before that appointment. Orders: Orders UA CC w/rflx Micro + Cult Today Z00.00 - Encounter for general adult medical examination without abnormal findings Complete Blood Count Auto Diff Today Z00.00 - Encounter for general adult medical examination without abnormal findings Comprehensive Silver. Panel Fast Today Z00.00 - Encounter for general adult medical examination without abnormal findings TSH reflex Free T4 Today Z00.00 - Encounter for general adult medical examination without abnormal findings Medications: New acetaminophen ER (Tylenol 8 Hour) 650 mg PO Q8H PRN 30 tabs 1RF pain Patient Instructions: - Take acetaminophen 650 mg every 8 hours as needed for pain. - Monitor pain intensity and characteristics. - Contact your iron and steel work supervisor if pain persists or worsens in the following 4-5 days. - Schedule a physical examination for cholesterol management. - Prepare for fasting blood work 10-12 hours before the physical exam by refraining from eating anything but water. Patient was informed and verbally consented to the use of an ambient scribe for clinic note documentation during this visit.
[2024-03-16 09:23] VITALS: BP 118/59; PULSE 72; RESP 16; TEMP 37.1; O2SAT 100; BMI 27.3
== END 2024-03-16 09:59 | disposition home or self-care (01) ==
PROVIDERS: PCP Nurse Practitioner Family; Visit Provider Nurse Practitioner Family
DX: R10.9 Unspecified abdominal pain (principal); Z00.00 Encounter for general adult medical examination without abnormal findings

== ENCOUNTER → 2024-03-16 09:17 | Outpatient (BNVA) | payer OTHER, SELFPAY | PROVIDERS: PCP Nurse Practitioner Family; Visit Provider Nurse Practitioner Family | DX: R10.9 Unspecified abdominal pain (principal) | CPT/HCPCS: 99212 ==

== ENCOUNTER 2024-04-20 08:08 | Outpatient (REF) | payer OTHER, SELFPAY ==
[2024-04-20 08:20] LABS: MANUAL DIFF FLAG NO
[2024-04-20 08:36] LABS: Basophils Percent Auto 0.4 % (0-2); Eosinophils Percent Auto 0.8 % (0-4); Hematocrit 37.6 % (37.0-47.0); Hemoglobin 12.6 g/dl (12.0-16.0); Imm Gran Abs Auto 0.02 X10*3/uL (0.00-0.03); Imm Gran Pct Auto 0.4 % (0.0-0.4); Lymphocytes Absolute Auto 1.9 X10*3/uL (1.2-4.9); Lymphocytes Percent Auto 39.9 % (20-40); Mean Corpuscular HGB Conc 33.5 g/dl (31.0-35.0); Mean Corpuscular Volume 92.4 fL (80.0-98.0); Mean Platelet Volume 9.4 fL (9.4-12.3); Monocytes Absolute Auto 0.4 X10*3/uL (0.1-1.2); Neutrophils Absolute Auto 2.4 x10*3/uL (2.0-8.3); Neutrophils Percent Auto 50.5 % (45-73); Platelet Count 266 X10*3/uL (160-400); Red Blood Count 4.07 X10*6/uL (4.20-5.50); Red Cell Distribution Width 12.2 % (11.0-16.0); White Blood Count 4.7 X10*3/uL (4.8-10.8)
[2024-04-20 08:54] LABS: Appearance Urine Clear; Color Urine Yellow; Glucose Urine UA Negative (Negative); Leukocyte Esterase Urine Negative (Negative); Nitrite Urine Negative (Negative); PH 5.5 (5.0-9.0); Specific Gravity - Urine 1.015 (1.005-1.025); Urine Blood Negative (Negative); Urine Ketones Negative (Negative); Urine Protein Negative (Neg-Trace)
[2024-04-20 09:31] LABS: Alanine Aminotransferase 22 U/L (0-31); Albumin Level 3.9 g/dL (3.5-5.0); Alkaline Phosphatase 42 U/L (39-117); Anion Gap 8 (12-20); Aspartate Amino Transferase 20 U/L (5-31); Bilirubin Total 0.1 mg/dL (0.0-1.0); Blood Urea Nitrogen 8 mg/dL (9-16); Calcium 8.9 mg/dL (8.4-10.2); Carbon Dioxide 22 mmol/L (22-29); Chloride 113 mmol/L (96-108); Cholesterol 210 mg/dL (<200); Estimated Glomerular Filt Rate > 60; Glucose Fasting 99 mg/dL (60-99); HDL Cholesterol 60 mg/dL (>40); LDL Cholesterol Calculated 134 mg/dL (<100); Potassium 4.4 mmol/L (3.3-5.1); Sodium 139 mmol/L (135-145); Total Protein 6.7 g/dL (6.5-8.0); Triglycerides 80 mg/dL (<150)
[2024-04-20 09:35] LABS: TSH reflex Free T4 1.13 uIU/mL (0.32-4.0)
== END 2024-04-20 08:09 | disposition home or self-care (01) ==
LOC: HO.LAB 08:08
PROVIDERS: PCP Nurse Practitioner Family; Visit Provider Nurse Practitioner Family
DX: Z00.00 Encounter for general adult medical examination without abnormal findings (principal); E78.5 Hyperlipidemia, unspecified
CPT/HCPCS: 36415; 80053; 80061; 81003; 84443; 85025

== ENCOUNTER 2024-11-15 10:06 | Outpatient (AMB) | payer OTHER, SELFPAY ==
--- NOTE | 2024-11-15 10:09 | A.OFFPC_ITS ---
Vital Signs 11/15/24 10:15 Height 5 ft 2 in Weight 176 lb 8 oz BMI 32.3 BP 108/55 L Blood Pressure Location Rt brachial Position Sitting Respiration 16 Pulse 83 Pulse Source Pulse Oximeter Temp 98.2 F Temp Source Oral Pulse Oximetry (%) 97 Oxygen Delivery Method Room Air Intake Visit Reasons: Physical Intake Note: patient here for CPE Manufacturers Agent Required: No Is last menstrual period known: No Post menopausal: No Patient : Yes (due jan 18, 2025) Allergies No Known Allergies Allergy (Verified 11/15/24 10:32) Medication List - Last Reconciled 11/15/24 by Cherise Larry CNP vit no.[id number] 27 mg iron- 800 mcg ( Vitamin) 1 tab PO DAILY Tobacco use date assessed: 11/15/24 Dental Screening Dental Screen Date: 11/15/24 Did you have a dental visit in the last 12 months?: Yes Did you have a dental problem in the last 6 months where you did not have access to dental care?: No Was dental information given to patient?: Patient has dentist HPI HPI Comments History of Present Illness Details 34-year-old female presents for an exten ded physical exam. She is 7.5 months and expecting a boy. has been going well. Taking prenatall vitamin daily. She stop taking atorvastatin when she found the she was . Acute issue(s) - None Past Medical History - Hyperlipidemia, abdominal pain, myopia (wears classes or contacts) Social History - Nonsmoker. Does not vape. Does not dri nk alcohol. Denies recreational drug use - Has been making healthy dietary choice s. Active but does not currently exercise. Generally sleep well Health maintenance - Last eye exam was 1-2 months ago with [facility]. Advised to sign a release for her PCP to obtain ophthalmology record - Last dental visit was 2 months ago - Last tetanus vaccine was in 10/2024 - She notes that she is up-to-date on flu vaccine - Last pap smear test was in 05/2021: [facility] Specialists - [facility] stereotyper helper PFSH Medical History High cholesterol Surgical History H/O wrist surgery Family History Father Diabetes HTN (hypertension) Mother Diabetes HTN (hypertension) Social History Household Members: Significant Other and Children Housing: House Alcohol intake: current Alcohol intake frequency: holidays/special occasions only Patient Tobacco Use Status: Former Tobacco user (hookah ) e-Cigarette/Vaping Use: Never Used Second Hand Smoke Exposure: No service: No Current occupational status: employed Current occupation: [employer] Sexual orientation: Straight/Heterosexual Gender identity: Female Cognitive needs: No Hearing needs: No Vision needs: No Female Reproductive History Menstrual Age of Menarche: 14 Questionnaire PHQ-9 Over the last 2 weeks, how often have you been bothered by any of the following problems? 1. Little interest or pleasure in doing things: not at all 2. Feeling down, depressed, or hopeless: not at all 3. Trouble falling or staying asleep, or sleeping too much: not at all 4. Feeling tired or having little energy: not at all 5. Poor appetite or overeating: not at all 6. Feeling bad about yourself - or that you are a failure or have let yourself or your family down: not at all 7. Trouble concentrating on things, such as reading the newspaper or watching television: not at all 8. Moving or speaking so slowly that other people could have noticed. Or the opposite - being so fidgety or restless that you have been moving around a lot more than usual: not at all 9. Thoughts that you would be better off or of hurting yourself in some way: not at all Total score: 0 Depression Screening Interpretation: Negative Depression Screening Done: Yes 45146 - PHQ-9 Billing: Yes Source: Developed by Drs. Kelvin Medeiros, Neema Dean, Phong Monge and colleagues, with an educational swetha from [employer]. Thrive Questionnaire Date Thrive assessed: 11/15/24 I am a: Patient What is your living situation today?: I have a steady place to live Within the past 12 months, did the food you bought not last and you didn't have the money to get more?: Never true Within the past 12 months, did you worry whether your food would run out before you got money to buy more?: Never true Do you have trouble paying for medicines?: No Do you have trouble getting transportation to medical appointments?: No Do you have trouble paying your heating and electricity bill?: No Do you have trouble taking care of your child, family member or friend?: No Do you have trouble with day-to-day activities such as bathing, preparing meals, shopping, managing finances, etc.?: No Are you currently unemployed and looking for a job?: No Are you interested in more education?: No Please select the resources that you would like help with: None Currently or been in a relationship where the following occur: No concerns reported THRIVE Score: 0 AUDIT C Alcohol Use Questionnaire (AUDIT-C) 1. How often do you have a drink containing alcohol?: Never 3. How often do you have six or more drinks on one occasion?: Never Total Score: 0 Score Reviewed/Action Taken: Yes MONA-7 AMB Questionnaire MONA-7 Date MONA - 7 assessed: 11/15/24 Feeling nervous, anxious, or on edge: 0 = Not at all Not being able to stop or control worryin = Not at all Worrying too much about different things: 0 = Not at all Trouble relaxin = Not at all Being so restless that it is hard to sit still: 0 = Not at all Becoming easily annoyed or irritable: 0 = Not at all Feeling afraid as if something awful might happen: 0 = Not at all Total MONA-7 score (0-4 normal; 5-9 mild; 10-14 moderate; 15-21 severe): 0 Source: Developed by Drs. Kelvin Medeiros, Neema Dean, Phong Monge and colleagues, with an educational swetha from [employer]. MONA-7 Assessment Billing MONA-7 Assessment Tool: MONA-7 Assessment 05429 Review of Systems Const Details: Denies chills, Denies fatigue, Denies fever(s), Denies headache(s) and Denies weakness HEENT Denies change in vision, Denies dizziness, Denies headache(s), Denies hearing loss, Denies nasal congestion, Denies sinus pain, Denies sinus pressure and Denies sore throat Card Denies chest pain, Denies lightheadedness, Denies dyspnea and Denies other (palpitations) Resp Denies cough, Denies dyspnea and Denies wheezing GI Denies abdominal pain, Denies melena, Denies hematochezia, Denies change in bowel habits, Denies dyspepsia and Denies nausea Denies hematuria and Denies dysuria Musc Denies abnormal gait, Denies myalgias, Denies arthralgias, Denies numbness and Denies tingling Skin/Breast Denies rash, Denies unusual bruising and Denies wounds Neuro Denies abnormal gait, Denies dizziness, Denies headache(s), Denies memory loss, Denies numbness, Denies Sensory deficit (Neuro), Denies tingling and Denies weakness Psych Denies anxiety, Denies depression and Denies memory loss Endo Denies cold intolerance, Denies fatigue, Denies heat intolerance, Denies polydipsia and Denies polyuria Daniel/Lymph Denies easy bleeding and Denies easy bruising Aller/Immun Denies wheezing Physical exam (Primary Care) Vital Signs: Last Vital Signs Temp 98.2 F 11/15/24 10:15 Pulse 83 11/15/24 10:15 Resp 16 11/15/24 10:15 BP 108/55 L 11/15/24 10:15 Pulse Ox 97 11/15/24 10:15 Oxygen Delivery Method Room Air 11/15/24 10:15 BMI result Body Mass Index 32.3 Tobacco/Smoking Status: Tobacco use Status Tobacco use date assessed 11/15/24 11/15/24 10:19 Patient Tobacco Use Status Former Tobacco user (hookah 11/15/24 10:19 ) Tobacco use type 11/15/24 10:19 e-Cigarette/Vaping Use Never Used 11/15/24 10:11 PHQ-9: PHQ-9 Score PHQ-9: Total score 0 11/15/24 10:12 Depression Screening Interpretation: Negative Thrive Assessment: Date of Thrive Assessment Date Thrive assessed 11/15/24 11/15/24 10:12 Currently or been in a relationship where the following occur: No concerns reported Const Other: General: no acute distress, well developed, alert and awake Nutritional Appearance: well nourished Orientation/consciousness: patient oriented x3 HENMT Head: Yes normocephalic and Yes atraumatic Ears: hearing grossly normal bilaterally and TM's normal bilaterally General nose exam: Normal external nose present and Normal nares present Mouth: Normal oral and palatal mucosa present and moist mucous membranes Teeth and gingiva: dentition normal Throat: Yes oropharynx normal Eyes Pupils: Equal, round and reactive pupils present and Pupil accommodation reflex normal EOM: EOMs intact bilaterally Neck Neck: Yes normal visual inspection, Yes no lymphadenopathy and Yes trachea midline Thyroid: Thyroid normal Carotids: no bruits Lymphatic: no lymphadenopathy noted Chest Chest palpation & inspection: normal inspection of the chest Resp Effort & Inspection: normal respiratory effort Auscultation: clear to auscultation bilaterally Cardio Rate: regular rate Rhythm: regular rhythm Heart sounds: S1 normal heart sound present, S2 normal heart sound present, no gallops, no murmurs and no rubs Bruits: no abdominal aortic bruits and no carotid bruits GI Palpation (GI): No Abdominal aortic bruit present, Soft to palpation, nontender, No hepatosplenomegaly present and No Rebound tenderness present Auscultation: normal bowel sounds General: Yes no CVA tenderness Back/Spine/Pelvis Back: no CVA tenderness Cervical Spine: cervical ROM normal and No Cervical spine tenderness Thoracic/Lumbar Spine: thoraco-lumbar ROM normal, No pain with thoraco-lumbar ROM, No thoracic spinal tenderness and No lumbar spinal tenderness Skin General: warm and dry. Normal skin color. Normal skin turgor Lesions: no lesions Rashes: no rashes Trauma: no lacerations or abrasions Wounds: no wounds Nails: normal Neuro General: patient oriented x3, gait normal and CN's II-XI intact bilaterally Cranial nerves: Yes Equal, round and reactive pupils present Cognition (Neuro): normal cognition Gait exam (Neuro): Normal gait present Motor exam (neuro): 5/5 motor strength present throughout Sensory Exam: No Sensory deficit (Neuro) Deep tendon reflexes (DTR's): Right patellar reflex intensity grade: 2+ and Left patellar reflex intensity grade: 2+ Extrem General: Yes normal to inspection, No edema and No calf tenderness Psych Appearance: grossly normal Affect: normal affect Attitude: cooperative Thought process: Normal thought process present Coding Level of Care Code Est Pt Prev Care 18-39y(71621) Diagnoses Normal physical exam Z00.00 Hyperlipidemia E78.5 Third trimester Z34.93 Laboratory tests ordered as part of a complete physical exam (CPE) Z00.00 Additional Codes MONA-7 Assessment Billing - MONA-7 Assessment Tool: MONA-7 Assessment 03937 ([id number]) PHQ-9 - 59147 - PHQ-9 Billing: Yes ([id number]) Assessment & Plan Assessment & Plan (1) Normal physical exam: Code(s): Z00.00 - Encounter for general adult medical examination without abnormal findings Category: Medical Plan: Normal physical exam of a 34-year-old female. Continue current treatment regimen. No significant functional limitation noted. Healthy diet and routine exercise encouraged. Perform lab work and follow-up for a telehealth visit in 2-4 weeks for labs review. Return sooner with symptoms or concerns. Verbalized understanding and agreed with the treatment plan. (2) Hyperlipidemia: Code(s): E78.5 - Hyperlipidemia, unspecified Category: Medical Plan: She stopped taking atorvastatin when she found that she was 7 and half months ago. For that it is common for lipid panel level to be elevated during to meet the metabolic demands of the fetus. Advised to limit foods high in saturated fat and avoid foods high in trans fat. Routine exercise encouraged. Will check lipid panel levels Verbalized understanding and agreed with plan. (3) Third trimester : Code(s): Z34.93 - Encounter for supervision of normal , unspecified, third trimester Category: Medical Plan: She is 7.5 months and expecting a boy. has been going well. Taking prenatall vitamin daily. Continue current treatment regimen. Follow-up with senior outside sales representative as planned. Verbalized understanding and agreed with the plan. (4) Laboratory tests ordered as part of a complete physical exam (CPE): Code(s): Z00.00 - Encounter for general adult medical examination without abnormal findings Category: Medical Plan: Fasting labs ordered as part of a complete physical exam. Advised to fast for at least 10 hours before getting labs drawn. May drink water Verbalized understanding and agreed with treatment plan. Orders: Orders Complete Blood Count Auto Diff Today Z00.00 - Encounter for general adult medical examination without abnormal findings Lipid Panel Today Z00.00 - Encounter for general adult medical examination without abnormal findings Microalbumin, Random (w Creat) Today Z00.00 - Encounter for general adult medical examination without abnormal findings TSH reflex Free T4 Today Z00.00 - Encounter for general adult medical examination without abnormal findings Vitamin D 25-OH Total Today Z00.00 - Encounter for general adult medical examination without abnormal findings Comprehensive [place]. Panel Fast Today Z00.00 - Encounter for general adult medical examination without abnormal findings UA CC w/rflx Micro + Cult Today Z00.00 - Encounter for general adult medical examination without abnormal findings
[2024-11-15 10:15] VITALS: BP 108/55; PULSE 83; RESP 16; TEMP 36.8; O2SAT 97; BMI 32.3
== END 2024-11-15 10:47 | disposition home or self-care (01) ==
LOC: HO.HMCFM 10:07
PROVIDERS: PCP Nurse Practitioner Family; Visit Provider Nurse Practitioner Family
DX: Z00.00 Encounter for general adult medical examination without abnormal findings (principal); E78.5 Hyperlipidemia, unspecified

== ENCOUNTER → 2024-11-15 10:06 | Outpatient (BNVA) | payer OTHER, SELFPAY | PROVIDERS: PCP Nurse Practitioner Family; Visit Provider Nurse Practitioner Family | DX: Z00.00 Encounter for general adult medical examination without abnormal findings (principal); O26.893 Other specified pregnancy related conditions, third trimester; E78.5 Hyperlipidemia, unspecified | CPT/HCPCS: 96127; 99395 ==

== ENCOUNTER 2024-12-02 08:16 | Outpatient (REF) | payer OTHER, SELFPAY ==
[2024-12-02 08:28] LABS: MANUAL DIFF FLAG NO
[2024-12-02 09:10] LABS: Hematocrit 33.1 % (37.0-47.0); Hemoglobin 11.7 g/dl (12.0-16.0); Imm Gran Abs Auto 0.12 X10*3/uL (0.00-0.03); Imm Gran Pct Auto 1.6 % (0.0-0.4); Lymphocytes Absolute Auto 1.6 X10*3/uL (1.2-4.9); Mean Corpuscular HGB Conc 35.3 g/dl (31.0-35.0); Mean Corpuscular Hemoglobin 30.8 pg (27.0-33.0); Mean Corpuscular Volume 87.1 fL (80.0-98.0); NRBC Abs Auto 0.000 X10*3/uL (0.0-0.012); NRBC Pct Auto 0.0 /100WBC (0.0-0.2); Platelet Count 216 X10*3/uL (160-400); Red Blood Count 3.80 X10*6/uL (4.20-5.50); White Blood Count 7.4 X10*3/uL (4.8-10.8)
[2024-12-02 09:21] LABS: Appearance Urine Clear; Glucose Urine UA Negative (Negative); PH 6.5 (5.0-9.0); Specific Gravity - Urine 1.020 (1.005-1.025); UMIC TRIGGER UACC YES
[2024-12-02 09:29] LABS: UACC Culture Trigger YES
[2024-12-02 09:41] LABS: Alanine Aminotransferase 8 U/L (0-31); Albumin Level 3.1 g/dL (3.5-5.0); Alkaline Phosphatase 114 U/L (39-117); Anion Gap 10 (12-20); Aspartate Amino Transferase 18 U/L (5-31); Blood Urea Nitrogen 8 mg/dL (9-16); Calcium 8.4 mg/dL (8.4-10.2); Carbon Dioxide 21 mmol/L (22-29); Chloride 111 mmol/L (96-108); Cholesterol 316 mg/dL (<200); Estimated Glomerular Filt Rate > 60; HDL Cholesterol 69 mg/dL (>40); Potassium 3.9 mmol/L (3.3-5.1); Sodium 138 mmol/L (135-145); Total Protein 6.4 g/dL (6.5-8.0); Triglycerides 240 mg/dL (<150)
[2024-12-02 10:05] LABS: Microalbum/Creatinine Ratio Ur 8.9 ug/mg cr (<30)
== END 2024-12-02 08:17 | disposition home or self-care (01) ==
LOC: HO.LAB 08:16
PROVIDERS: Visit Provider Nurse Practitioner Family
DX: Z00.00 Encounter for general adult medical examination without abnormal findings (principal)
CPT/HCPCS: 36415; 80053; 80061; 81001; 82043; 82306; 82570; 84443; 85025; 87086

== ENCOUNTER 2024-12-06 15:24 | Outpatient (AMB) | payer OTHER, SELFPAY ==
--- NOTE | 2024-12-06 15:19 | MHC.PC.OV ---
Intake Visit Reasons: Telehealth 2-4 wks labs review Intake Note: patient here for 2-4 wks telehealth for lab review Case Management Associate Required: No Is last menstrual period known: No () Post menopausal: No Patient : No Allergies No Known Allergies Allergy (Verified 12/06/24 15:20) Tobacco use date assessed: 12/06/24 Dental Screening Dental Screen Date: 12/06/24 Did you have a dental visit in the last 12 months?: Yes Did you have a dental problem in the last 6 months where you did not have access to dental care?: No Was dental information given to patient?: Patient has dentist HPI HPI Comments History of Present Illness Details 34-year-old female presents for a telehealth visit for review of recent lab results. She is 8 months without complication. She is followed by [facility] fire loss prevention engineer. No acute symptoms at this time. [facility] Medical History High cholesterol Surgical History H/O wrist surgery Family History Father Diabetes HTN (hypertension) Mother Diabetes HTN (hypertension) Social History Household Members: Significant Other and Children Housing: House Alcohol intake: current Alcohol intake frequency: holidays/special occasions only Patient Tobacco Use Status: Former Tobacco user (hookah ) e-Cigarette/Vaping Use: Never Used Second Hand Smoke Exposure: No Patient : No service: No Current occupational status: employed Current occupation: [email or web address] Current occupational exposures/hazards: No Sexual orientation: Straight/Heterosexual Gender identity: Female Cognitive needs: No Hearing needs: No Vision needs: No Female Reproductive History Menstrual Age of Menarche: 14 Questionnaire Thrive Questionnaire Date Thrive assessed: 11/15/24 MONA-7 AMB Questionnaire MONA-7 Date MONA - 7 assessed: 11/15/24 Source: Developed by Drs. Kelvin Medeiros, Neema Dean, Phong Monge and colleagues, with an educational swetha from [employer]. Review of Systems Const Details: Denies chills, Denies fatigue, Denies fever(s), Denies headache(s) and Denies weakness Cardiac Denies chest pain, Denies claudication, Denies leg edema, Denies lightheadedness, Denies palpitations, Denies dyspnea, Denies dyspnea on exertion, Denies orthopnea and Denies other (Loss of consciousness) Resp Denies cough, Denies excessive phlegm production, Denies dyspnea, Denies dyspnea on exertion, Denies snoring and Denies wheezing Physical exam (Primary Care) Tobacco/Smoking Status: Tobacco use Status Tobacco use date assessed 12/06/24 12/06/24 15:21 Patient Tobacco Use Status Former Tobacco user 12/06/24 15:21 Tobacco use type 11/15/24 10:49 e-Cigarette/Vaping Use Never Used 12/06/24 15:21 Thrive Assessment: Date of Thrive Assessment Date Thrive assessed 11/15/24 12/06/24 15:21 Const Other: Patient is alert oriented x3 Telehealth Telehealth Telehealth Platform: Telephone Location of provider rendering services: practice address Location of patient: address on file Patient Identification confirmed using: Name, : Yes Telehealth method: voice only Patient verbally consented to treatment: Yes Patient verbally consented to billing insurance company: Yes Patient informed of any privacy concerns related to visit: Yes Coding Level of Care Code Tele Est Pt Level 3 (75349) Diagnoses Hyperlipidemia E78.5 Normocytic anemia D64.9 Hypoproteinemia E77.8 Time Spent (min) 15 Assessment & Plan Assessment & Plan (1) Hyperlipidemia: Code(s): E78.5 - Hyperlipidemia, unspecified Category: Medical Plan: Recent triglyceride, total cholesterol, and LDL levels are elevated, 240, 316, and 199 respectively, HDL is normal. Very likely related to changes. Fast for 10-12 hours, may drink water, and perform lipid panel blood work 2-3 days before next visit. Follow-up for a telehealth visit in 3 months. Return sooner with symptoms or concerns. Verbalized understanding and agreed with the plan. (2) Normocytic anemia: Code(s): D64.9 - Anemia, unspecified Category: Medical Plan: Recent RBC and H&H are slightly low, 3.80 and 11.7/33.1 respectively. MCV is normal. Likely normal response. Followed by fire loss prevention engineer. Will recheck RBC in 3 months. Verbalized understanding and agreed with the plan. 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 Likely normal response. Adequate nutrition encouraged. Will recheck protein albumin in 3 months. Verbalized understanding and agreed with the plan. Orders: Orders Total Protein 3 Months E77.8 - Other disorders of glycoprotein metabolism Albumin Level 3 Months E77.8 - Other disorders of glycoprotein metabolism Lipid Panel 3 Months E78.5 - Hyperlipidemia, unspecified Complete Blood Count no Diff 3 Months D64.9 - Anemia, unspecified
== END 2024-12-06 16:10 | disposition home or self-care (01) ==
LOC: HO.HMCFM 15:24
PROVIDERS: PCP Nurse Practitioner Family; Visit Provider Nurse Practitioner Family
DX: E78.5 Hyperlipidemia, unspecified (principal); D64.9 Anemia, unspecified; E77.8 Other disorders of glycoprotein metabolism

== ENCOUNTER 2025-03-09 08:26 | Outpatient (REF) | payer OTHER, SELFPAY ==
[2025-03-09 09:05] LABS: Hematocrit 41.6 % (37.0-47.0); Hemoglobin 13.8 g/dl (12.0-16.0); Mean Corpuscular HGB Conc 33.2 g/dl (31.0-35.0); Mean Corpuscular Hemoglobin 29.4 pg (27.0-33.0); Mean Corpuscular Volume 88.5 fL (80.0-98.0); NRBC Abs Auto 0.000 X10*3/uL (0.0-0.012); NRBC Pct Auto 0.0 /100WBC (0.0-0.2); Platelet Count 256 X10*3/uL (160-400); Red Blood Count 4.70 X10*6/uL (4.20-5.50); White Blood Count 5.5 X10*3/uL (4.8-10.8)
[2025-03-09 09:32] LABS: Albumin Level 4.5 g/dL (3.5-5.0); Cholesterol 306 mg/dL (<200); HDL Cholesterol 67 mg/dL (>40); Total Protein 7.7 g/dL (6.5-8.0); Triglycerides 110 mg/dL (<150)
--- OUTSIDE RECORDS SUMMARY | 2025-03-09 16:09 | XMS_ITS | Clinical Summary ---
Author Organization [facility] ity Address [address] [place] [address] Care Team Providers Care Account Contact Associate Name Role Phone Unavailable Primary Care Provider Unavailabl e Encounters Date Type Department Care Team Description 01/14/2025 Telephone [facility] [address] [id number] Tracey Zuniga RN from Last 3 Months Social History Tobacco Use Types Packs/Day Years Used Date Smoking Tobacco: Never Assessed Comments Unknown Sex and Gender Information Value Date Recorded Sex Assigned at Not on file Legal Sex Female 12:47 PM EST Gender Identity Not on file Sexual Orientation Not on file Plan of Treatment Health Maintenance Due Date Last Done Comments DTaP,Tdap,and Td Vaccines (1 - Tdap) 07/30/2011 Hepatitis B Vaccines (1 of 3 - 19+ 3-dose series) 07/30/2011 Cervical Cancer Screening: P ap Smear 2013 HPV Vaccines (1 - 3-dose SCD M series) 07/30/2019 Depression Screening 04/21/2024 COVID-19 Vaccine ( - 2024-2 6 season) 2024 Influenza Vaccine (#1) 2024 HIV Screening 01/14/2025 Hepatitis C Screening 01/14/2025 Social Influencers of Health Screening 01/14/2025 RSV Immunization Adult Patie nts (1 - 1-dose 75+ series) 07/30/2067 HIB Vaccines Aged Out No longer eligi ble based on patient's age to complete this topic Hepatitis A Vaccines Aged Out No long er eligible based on patient's age to complete this topic IPV Vaccines Aged Out No longer eligi ble based on patient's age to complete this topic MMR Vaccines Aged Out No longer eligi ble based on patient's age to complete this topic Meningococcal ACWY Vaccine Aged Out N o longer eligible based on patient's age to complete this topic Meningococcal B Vaccine Aged Out No l onger eligible based on patient's age to complete this topic Pneumococcal Vaccine: Pediat rics (0 to 5 Years) and At-Risk Patients (6 to 49 Years) Aged Out No longer eligible b ased on patient's age to complete this topic RSV Immunization Patients Un elena 20 months Aged Out No longer eligible b ased on patient's age to complete this topic Varicella Vaccines Aged Out No longer eligible based on patient's age to complete this topic
== END 2025-03-09 08:27 | disposition home or self-care (01) ==
LOC: HO.LAB 08:26
PROVIDERS: PCP Nurse Practitioner Family; Visit Provider Nurse Practitioner Family
DX: E77.8 Other disorders of glycoprotein metabolism (principal); E78.5 Hyperlipidemia, unspecified; D64.9 Anemia, unspecified
CPT/HCPCS: 36415; 80061; 82040; 84155; 85027

== ENCOUNTER 2025-03-14 14:05 | Outpatient (AMB) | payer OTHER, SELFPAY ==
--- NOTE | 2025-03-14 14:15 | MHC.PC.OV ---
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 She was on atorvastatin which she stopped taking in 04/2024 after she found out was . She has been consuming significant amount of cheese, meat, and 1% milk. She is active but has not exercise since she got . She delivered a healthy baby boy 2 months ago. She offers no complaints and denies acute symptoms at this time. [facility] Medical History High cholesterol Surgical History H/O wrist surgery Family History Father Diabetes HTN (hypertension) Mother Diabetes HTN (hypertension) Social History Household Members: Significant Other and Children Housing: House Alcohol intake: current Alcohol intake frequency: holidays/special occasions only Patient Tobacco Use Status: Former Tobacco user (hookah ) e-Cigarette/Vaping Use: Never Used Second Hand Smoke Exposure: No Patient : No service: No Current occupational status: employed Current occupation: [employer] Current occupational exposures/hazards: No Sexual orientation: Straight/Heterosexual Gender identity: Female Cognitive needs: No Hearing needs: No Vision needs: No Female Reproductive History Menstrual Age of Menarche: 14 Questionnaire Thrive Questionnaire Date Thrive assessed: 11/15/24 I am a: Patient What is your living situation today?: I have a steady place to live Within the past 12 months, did the food you bought not last and you didn't have the money to get more?: Never true Within the past 12 months, did you worry whether your food would run out before you got money to buy more?: Never true Do you have trouble paying for medicines?: No Do you have trouble getting transportation to medical appointments?: No Do you have trouble paying your heating and electricity bill?: No Do you have trouble taking care of your child, family member or friend?: No Do you have trouble with day-to-day activities such as bathing, preparing meals, shopping, managing finances, etc.?: No Are you currently unemployed and looking for a job?: No Are you interested in more education?: No Please select the resources that you would like help with: None Currently or been in a relationship where the following occur: No concerns reported THRIVE Score: 0 MONA-7 AMB Questionnaire MONA-7 Date MONA - 7 assessed: 11/15/24 Source: Developed by Drs. Kelvin Medeiros, Neema Dean, Phong Monge and colleagues, with an educational swetha from [employer]. Review of Systems Const Details: Denies chills, Denies fatigue, Denies fever(s), Denies headache(s) and Denies weakness Cardiac Denies chest pain, Denies claudication, Denies leg edema, Denies lightheadedness, Denies palpitations, Denies dyspnea, Denies dyspnea on exertion, Denies orthopnea and Denies other (Loss of consciousness) Resp Denies cough, Denies excessive phlegm production, Denies dyspnea, Denies dyspnea on exertion, Denies snoring and Denies wheezing Physical exam (Primary Care) Tobacco/Smoking Status: Tobacco use Status Tobacco use date assessed 03/14/25 03/14/25 14:16 Patient Tobacco Use Status Former Tobacco user (hookah 03/14/25 14:16 ) Tobacco use type 11/15/24 10:49 e-Cigarette/Vaping Use Never Used 03/14/25 14:16 Thrive Assessment: Date of Thrive Assessment Date Thrive assessed 11/15/24 03/14/25 14:16 Currently or been in a relationship where the following occur: No concerns reported Const Other: Patient is alert and oriented x4 Telehealth Telehealth Telehealth Platform: Telephone Location of provider rendering services: practice address Location of patient: address on file Patient Identification confirmed using: Name, : Yes Telehealth method: voice only Patient verbally consented to treatment: Yes Patient verbally consented to billing insurance company: Yes Patient informed of any privacy concerns related to visit: Yes Coding Level of Care Code Tele Est Pt Level 3 (87279) Diagnoses Hyperlipidemia E78.5 Hypoproteinemia 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 Previous triglycerides was 240. She was to continue to make lifestyle changes at this time versus restarting atorvastatin. Advised to limit foods high in saturated fat and avoid foods high in trans fat. Routine exercise encouraged. Fast for 10-12 hours, may drink water, pat family panel blood work a few days before next visit. Follow-up in 2 months for transfer of care with a new provider within the practice, and HLD. Return sooner with symptoms or concerns. Verbalized understanding and agreed with the plan. (2) Hypoproteinemia: Code(s): E77.8 - Other disorders of glycoprotein metabolism Category: Medical Plan: Resolved. Recent albumin and total protein levels are normal. (3) Normocytic anemia: Code(s): D64.9 - Anemia, unspecified Category: Medical Plan: Resolved. Recent CBC is normal. Orders: Orders Lipid Panel 2 Months E78.5 - Hyperlipidemia, unspecified
--- OUTSIDE RECORDS SUMMARY | 2025-03-14 19:01 | XMS_ITS | Clinical Summary ---
Author Organization [facility] ity Address [address] [place] [address] Care Team Providers Care Tin Pot Operator Name Role Phone Unavailable Primary Care Provider Unavailabl e Encounters Date Type Department Care Team Description 01/14/2025 Telephone [facility] - [address] [id number] Tracey Zuniga RN from Last 3 Months [...]
== END 2025-03-14 15:52 | disposition home or self-care (01) ==
LOC: HO.HMCFM 14:05
PROVIDERS: PCP Nurse Practitioner Family; Visit Provider Nurse Practitioner Family
DX: E78.5 Hyperlipidemia, unspecified (principal); E77.8 Other disorders of glycoprotein metabolism; D64.9 Anemia, unspecified